=== PATIENT | male | born 1965 | race Caucasian/White ===

== ENCOUNTER 2017-02-27 15:48 | Inpatient (IN) | payer BC ==
[~2017-02-27] VITALS: Ht 185.4 cm; Wt 161.6 kg
[~2017-02-27 15:48] MED LIST: AMOX500C3 PO; CHOL1000 PO; MULT-506 PO; SULF800T23 PO; WARF-281 PO
[2017-02-27] MEDS ORDERED: DILTIAZEM BOLUS / DRIP IV STA (16:14)
[2017-02-27] MEDS ORDERED: SODIUM CHLORIDE 0.9% 1000ML 1,000 ML IV ONE (16:15)
[2017-02-27] MEDS ORDERED: DILTIAZEM HCL 5 MG/ML 5 ML VIAL ONE (16:24)
[2017-02-27] MEDS ORDERED: DILTIAZEM HCL INJ 125 MG in DEXTROSE 5% 100ML IV PRN (16:30)
[2017-02-27 16:56] LABS: BASO % 0.4 %; BASO ABS # 0.03 K/uL (0-0.2); COMPLETE YES; EOS % 2.4 %; HEMATOCRIT 42.9 % (42-52); IG% 0.1 %; LYMPH % 25.5 %; LYMPH ABS # 1.83 K/uL (1.2-3.4); MEAN CELL VOLUME 88.3 fL (80-100); MEAN CORPUSCULAR HEMOGLOBIN 29.8 pg (25-34); MEAN CORPUSCULAR HGB CONC 33.8 g/dl (32-36); MEAN PLATELET VOLUME 11.8 fL (7.4-10.4); MONO % 10.6 %; PLATELET COUNT 158 K/uL (130-400); RED BLOOD COUNT 4.86 M/uL (4.7-6.1); WHITE BLOOD COUNT 7.17 K/uL (4.8-10.8)
[2017-02-27 17:00] LABS: BUN/CREATININE RATIO 13.4 (10-20); CALCIUM 9.2 mg/dl (8.5-10.1); CREATININE 0.76 mg/dl (0.60-1.40); MAGNESIUM 2.1 mg/dl (1.8-2.4); POTASSIUM 3.9 mmol/L (3.5-5.1)
[2017-02-27 17:08] LABS: INR 2.9 (0.9-1.1); PARTIAL THROMBOPLASTIN RATIO 1.6
[2017-02-27 17:11] LABS: ALB/GLOB RATIO 0.9 (0.9-2); THYROID STIMULATING HORMONE 2.66 uIu/ml (0.300-4.500)
--- NOTE | 2017-02-27 17:29 | DIAGNOSTIC IMAGING REPORT ---
CHEST 2 VIEWS ROUTINE CLINICAL HISTORY: SOB. Afib. COMPARISON STUDY: No previous studies for comparison. FINDINGS: The heart is mildly enlarged. There is mild central vascular prominence without evidence of overt edema. There is no focal pulmonary consolidation. There are equivocal trace pleural effusions.[ IMPRESSION: 1. Mild cardiomegaly with mild central vascular prominence 2. No overt edema 3. No evidence of focal pulmonary consolidation 4. Equivocal trace pleural effusions Electronically signed by: Kwesi Giron M.D. 02/27/2017 5:28 PM Dictated Date/Time: 02/27/2017 5:27 PM
[2017-02-27 17:51] LABS: LYME DISEASE AB IGG NEG (NEG); LYME DISEASE AB IGM NEG (NEG)
[2017-02-27] MEDS ORDERED: ONDANSETRON INJ 2 MG/ML 2 ML VIAL IV PRN (18:30)
[2017-02-27] MEDS ORDERED: DILTIAZEM BOLUS / DRIP IV PRN (18:31)
[2017-02-27 19:54] VITALS: BP 110/74; PULSE 94; TEMP 36.8; O2SAT 95; Ht 185.4 cm; Wt 161.6 kg
--- NOTE | 2017-02-27 19:57 | History and Physical ---
History & Physical Date & Time of Service: Feb 27, 2017 at 18:44 Chief Complaint: Shortness of Breath Primary Care Physician: Steve Guadarrama D.O. History of Present Illness 51 year old male who presents to the ER by referral of his PCP for atrial fibrillation with RVR. Patient's chief complaint to the PCP was increasing shortness of breath for the past 3 weeks. In the office, he was found to be in afib with RVR. He was then referred to the ER for further evaluation. Patient notes shortness of breath has been progressively getting worse. He reports shortness of breath with minimal exertion. He also reports orthopnea. He has chronic LLE edema which is unchanged from baseline. He denies chest pain or palpitations. No lightheadedness, dizziness, diaphoresis, or syncopal events. He denies abdominal pain, nausea, vomiting, or diarrhea. No fever or chills. He denies any urinary symptoms. About 2 months ago, patient got an abrasion on the his LLE which has been slow to heal. He is following with the wound clinic and was placed on Bactrim and Amoxicillin last week for culture growing pansensitive enterococcus and Klebsiella. Upon arrival to the ED, patient was in afib with RVR with rates in the 150s. He was given Cardizem 10mg IV bolus followed by a drip. Heart rates were in the low 100s at the time of my exam. Troponin is negative. Other labs are unremarkable. Past Medical/Surgical History Medical Problems: (1) DVT (deep venous thrombosis) Status: Resolved (2) PE (pulmonary embolism) Status: Resolved Family History FH: atrial fibrillation MOTHER Social History Smoking Status: Never Smoker Alcohol Use: occasionally Immunizations History of Influenza Vaccine: Yes Influenza Vaccine Date: Jun 06, 2011 History of Tetanus Vaccine?: Yes Tetanus Immunization Date: Oct 14, 2007 Multi-Drug Resistant Organisms History of MDRO: No Allergies Coded Allergies: No Known Allergies (Verified , 02/27/17) Home Medications Scheduled Amoxicillin (Amoxil), 500 MG PO TID Cholecalciferol (Vitamin D3), 1 TAB PO DAILY Multivitamin (Multivitamin), 1 TAB PO DAILY Sulfa/Trimethoprim (Bactrim Ds 800MG/160MG), 1 TAB PO BID Warfarin Sodium (Warfarin Sodium), 10 MG PO QPM Review of Systems ROS per HPI, all other systems reviewed and negative Physical Exam Vital Signs Date Time Temp Pulse Resp B/P (MAP) Pulse Ox O2 Delivery O2 Flow Rate FiO2 02/27/17 18:30 105 20 137/87 91 Room Air 02/27/17 18:15 108 20 122/95 91 Room Air 02/27/17 18:00 120 20 122/93 96 02/27/17 17:45 105 20 118/96 95 Room Air 02/27/17 17:30 117 20 121/86 94 Room Air 02/27/17 17:25 121 22 108/86 94 Room Air 02/27/17 17:11 117 22 137/87 95 Room Air 02/27/17 16:45 111 23 110/89 94 Room Air 02/27/17 16:27 22 131/95 93 02/27/17 16:18 95 Room Air 02/27/17 16:15 97 Room Air 02/27/17 16:14 146 24 131/107 98 Room Air 02/27/17 16:11 123 02/27/17 15:56 36.7 182 20 154/103 97 Room Air General Appearance: no apparent distress Head: normocephalic, atraumatic Eyes: normal inspection, sclerae normal ENT: hearing grossly normal Neck: supple, no JVD Respiratory/Chest: no respiratory distress, + decreased breath sounds Cardiovascular: regular rate, rhythm, normal peripheral pulses, + pertinent finding (trace edema LLE) Abdomen/GI: normal bowel sounds, non tender, soft Extremities/Musculoskelatal: normal inspection, no calf tenderness Neurologic/Psych: no motor/sensory deficits, alert, normal mood/affect, oriented x 3 Skin: + pertinent finding (dressing removed from LLE - two wounds noted to the left anterior phillips without significant drainage or surrounding erythema) Diagnostics Laboratory Results Results Past 24 Hours Test 02/27/17 16:15 02/27/17 16:31 02/27/17 16:35 Range/Units White Blood Count 7.17 4.8-10.8 K/uL Red Blood Count 4.86 4.7-6.1 M/uL Hemoglobin 14.5 14.0-18.0 g/dL Hematocrit 42.9 42-52 % Mean Corpuscular Volume 88.3 80-100 fL Mean Corpuscular Hemoglobin 29.8 25-34 pg Mean Corpuscular Hemoglobin Concent 33.8 32-36 g/dl Platelet Count 158 130-400 K/uL Mean Platelet Volume 11.8 7.4-10.4 fL Neutrophils (%) (Auto) 61.0 % Lymphocytes (%) (Auto) 25.5 % Monocytes (%) (Auto) 10.6 % Eosinophils (%) (Auto) 2.4 % Basophils (%) (Auto) 0.4 % Neutrophils # (Auto) 4.37 1.4-6.5 K/uL Lymphocytes # (Auto) 1.83 1.2-3.4 K/uL Monocytes # (Auto) 0.76 0.11-0.59 K/uL Eosinophils # (Auto) 0.17 0-0.5 K/uL Basophils # (Auto) 0.03 0-0.2 K/uL RDW Standard Deviation 50.5 36.4-46.3 fL RDW Coefficient of Variation 15.7 11.5-14.5 % Immature Granulocyte % (Auto) 0.1 % Immature Granulocyte # (Auto) 0.01 0.00-0.02 K/uL Prothrombin Time 33.0 9.0-12.0 SECONDS Prothromb Time International Ratio 2.9 0.9-1.1 Activated Partial Thromboplast Time 42.3 21.0-31.0 SECONDS Partial Thromboplastin Ratio 1.6 Sodium Level 142 136-145 mmol/L Potassium Level 3.9 3.5-5.1 mmol/L Chloride Level 106 98-107 mmol/L Carbon Dioxide Level 27 21-32 mmol/L Anion Gap 9.0 3-11 mmol/L Blood Urea Nitrogen 10 7-18 mg/dl Creatinine 0.76 0.60-1.40 mg/dl Est Creatinine Clear Calc Drug Dose 177.4 ml/min Estimated GFR () 123.3 Estimated GFR (Non- 106.4 BUN/Creatinine Ratio 13.4 10-20 Random Glucose 87 70-99 mg/dl Calcium Level 9.2 8.5-10.1 mg/dl Magnesium Level 2.1 1.8-2.4 mg/dl Total Bilirubin 0.4 0.2-1 mg/dl Aspartate Amino Transf (AST/SGOT) 19 15-37 U/L Alanine Aminotransferase (ALT/SGPT) 34 12-78 U/L Alkaline Phosphatase 67 45-117 U/L Total Protein 7.2 6.4-8.2 gm/dl Albumin 3.5 3.4-5.0 gm/dl Globulin 3.7 2.5-4.0 gm/dl Albumin/Globulin Ratio 0.9 0.9-2 Lipase 131 73-393 U/L Thyroid Stimulating Hormone (TSH) 2.660 0.300-4.500 uIu/ml Lyme Disease IgG Antibody NEG NEG Lyme Disease IgM Antibody NEG NEG Bedside Lactic Acid Venous 1.47 0.90-1.70 mmol/L Bedside Troponin I < 0.030 0-0.045 ng/ml Microbiology Results 02/27/17 Blood Culture, Received Pending 02/27/17 Blood Culture, Received Pending Diagnostic Radiology CXR IMPRESSION: 1. Mild cardiomegaly with mild central vascular prominence 2. No overt edema 3. No evidence of focal pulmonary consolidation 4. Equivocal trace pleural effusions Impression Assessment and Plan NEW ONSET ATRIAL FIBRILLATION WITH RVR - admit to tele - patient presented to PCP's office today with worsening shortness of breath x 3 weeks, found to be in atrial fibrillation with RVR with rates in the 150s - s/p Cardizem 10mg IV bolus and drip in the ED with improvement in heart rate - will start metoprolol tartrate 12.5mg BID tonight and wean cardizem drip as able - initial troponin negative, continue to cycle cardiac enzymes - echo - patient already on Coumadin with therapeutic INR for hx of DVT/PE - may have some mild volume overload - consider small dose of IV Lasix - electrolytes WNL; ? if LLE wound infection has triggered the afib, also consider YENNI - will need outpatient sleep study - case discussed with Dr. Ko [facility] - following with the wound center - wound care consult - outpatient culture grew pansensitive Klebsiella and enterococcus; on Bactrim and amoxicillin - will continue HX DVT/PE - on Coumadin with therapeutic INR DVT PROPHYLAXIS - on Coumadin with therapeutic INR DISPO - In my clinical judgment this beneficiary meets acute admission criteria, established by [facility], that includes being hospitalized through two midnights. Addendum: I have seen and evaluated the patient and agree with the assessment and plan above. Per the nurse at 9pm, the patient is on diltiazem 15mg/hr and is low 100s unless he stands up, when his HR goes to 150s. Metoprolol changed to 25mg PO BID. He is reporting no SOB as his issue is dyspnea with exertion only over the past several weeks. Apprec Cards eval in am. Kelvin, DO Level of Care Telemetry Resuscitation Status FULL RESUSCITATION VTE Prophylaxis VTE Risk Assessment Done? Y/N: Yes Risk Level: Moderate Given or contraindicated: Warfarin (Coumadin)
[2017-02-27 20:19] LABS: URINE APPEARANCE CLEAR (CLEAR); URINE BILIRUBIN NEG (NEG); URINE COLOR YELLOW; URINE NITRITE NEG (NEG); URINE PH 5.5 (4.5-7.5); URINE SPECIFIC GRAVITY 1.019 (1.000-1.030); UROBILINOGEN NEG (NEG); ZZUR CULT IF INDIC CLEAN CATCH NO
[2017-02-27 20:20] LABS: MANUAL MICROSCOPIC REQUIRED? NO; REVIEW REQ? NO
[2017-02-27] MEDS: WARFARIN SOD 10 MG TAB PO SCH (20:28)
[2017-02-27] MEDS: SULFAMETHOXAZOLE/TRIMETHOPRIM DS 800/160MG TAB PO SCH (20:29)
[2017-02-27] MEDS: AMOXICILLIN 500 MG CAP PO SCH (20:30)
[2017-02-27] MEDS ORDERED: METOPROLOL TARTRATE 25 MG TAB PO ONE (21:00)
[2017-02-27] MEDS ORDERED: METOPROLOL TARTRATE 25 MG TAB PO SCH (21:00)
[2017-02-27] MEDS: ACETAMINOPHEN 325 MG TAB PO PRN (21:51)
--- NOTE | 2017-02-27 23:41 | EMERGENCY ROOM VISIT NOTE ---
History First contact with patient: 15:57 Chief Complaint: IRREGULAR HEARTBEAT Stated Complaint: EKG @ [facility] SHOWED A-FIB, DIFFICULTY BREATHING Nursing Triage Summary: SOB times three weeks waking him up at night the past three night. Patient states he had no "chest pain". History of Present Illness The patient is a 51 year old male who presents to the Emergency Room with complaints of vague shortness of breath symptoms for the past 3 weeks. His symptoms have been worse the past 3 nights, particularly when trying to sleep. He is having difficulty catching his breath but does not have distinct chest pain. He has been without fever or chills. The patient has a history of PE and is on warfarin. He went to his primary care physician today and was in A. fib. He was referred to the ER for further evaluation as he has never had this in the past. The patient was evaluated at [facility] yesterday for a left lower leg wound with slow healing. He is currently on a course of Bactrim and amoxicillin after growing Klebsiella and enterococcus. The patient states he is tolerating his medication well but did skip his dose of Coumadin yesterday. He does not believe he is diabetic. He is without additional complaints. He does not identify aggravating or alleviating factors. Review of Systems More than 10 systems were reviewed and otherwise negative with the exception of history of present illness. Past Medical/Surgical History Medical Problems: (1) DVT (deep venous thrombosis) (2) PE (pulmonary embolism) Family History Hypertension Kidney disease Social History Smoking Status: Never Smoker Alcohol Use: occasionally Drug Use: none Marital Status: Housing Status: lives with family Occupation Status: employed Current/Historical Medications Scheduled Amoxicillin (Amoxil), 500 MG PO TID Cholecalciferol (Vitamin D3), 1 TAB PO DAILY Multivitamin (Multivitamin), 1 TAB PO DAILY Sulfa/Trimethoprim (Bactrim Ds 800MG/160MG), 1 TAB PO BID Warfarin Sodium (Warfarin Sodium), 10 MG PO QPM Physical Exam Vital Signs Date Time Temp Pulse Resp B/P (MAP) Pulse Ox O2 Delivery O2 Flow Rate FiO2 02/27/17 18:15 108 20 122/95 91 Room Air 02/27/17 18:00 120 20 122/93 96 02/27/17 17:45 105 20 118/96 95 Room Air 02/27/17 17:30 117 20 121/86 94 Room Air 02/27/17 17:25 121 22 108/86 94 Room Air 02/27/17 17:11 117 22 137/87 95 Room Air 02/27/17 16:45 111 23 110/89 94 Room Air 02/27/17 16:27 22 131/95 93 02/27/17 16:18 95 Room Air 02/27/17 16:15 97 Room Air 02/27/17 16:14 146 24 131/107 98 Room Air 02/27/17 16:11 123 02/27/17 15:56 36.7 182 20 154/103 97 Room Air Physical Exam VITALS: Vitals are noted on the nurse's note and reviewed by myself. Vital signs with tachycardia GENERAL: Well-developed, well-nourished, white male who appears mildly uncomfortable but cooperative. NECK: Supple without nuchal rigidity. No lymphadenopathy. No thyromegaly. Cervical spine is nontender. HEART: Irregularly irregular without noted murmur LUNGS: Distant bilaterally without wheezes, rales or rhonchi. No retractions or accessory muscle use. ABDOMEN: Positive normal bowel sounds x 4. Soft, nontender, without masses or organomegaly. No guarding or rebound tenderness. NEURO: Patient was alert and oriented to person place and time. CN II through XII grossly intact. Medical Decision & Procedures Laboratory Results 02/27/17 16:15 Red Blood Count 4.86, Mean Corpuscular Volume 88.3, Mean Corpuscular Hemoglobin 29.8, Mean Corpuscular Hemoglobin Concent 33.8, Mean Platelet Volume 11.8, Neutrophils (%) (Auto) 61.0, Lymphocytes (%) (Auto) 25.5, Monocytes (%) (Auto) 10.6, Eosinophils (%) (Auto) 2.4, Basophils (%) (Auto) 0.4, Neutrophils # (Auto ) 4.37, Lymphocytes # (Auto) 1.83, Monocytes # (Auto) 0.76, Eosinophils # (Auto ) 0.17, Basophils # (Auto) 0.03 02/27/17 16:15 Test 02/27/17 16:15 02/27/17 16:31 02/27/17 16:35 White Blood Count 7.17 K/uL (4.8-10.8) Red Blood Count 4.86 M/uL (4.7-6.1) Hemoglobin 14.5 g/dL (14.0-18.0) Hematocrit 42.9 % (42-52) Mean Corpuscular Volume 88.3 fL (80-100) Mean Corpuscular Hemoglobin 29.8 pg (25-34) Mean Corpuscular Hemoglobin Concent 33.8 g/dl (32-36) Platelet Count 158 K/uL (130-400) Mean Platelet Volume 11.8 fL (7.4-10.4) Neutrophils (%) (Auto) 61.0 % Lymphocytes (%) (Auto) 25.5 % Monocytes (%) (Auto) 10.6 % Eosinophils (%) (Auto) 2.4 % Basophils (%) (Auto) 0.4 % Neutrophils # (Auto) 4.37 K/uL (1.4-6.5) Lymphocytes # (Auto) 1.83 K/uL (1.2-3.4) Monocytes # (Auto) 0.76 K/uL (0.11-0.59) Eosinophils # (Auto) 0.17 K/uL (0-0.5) Basophils # (Auto) 0.03 K/uL (0-0.2) RDW Standard Deviation 50.5 fL (36.4-46.3) RDW Coefficient of Variation 15.7 % (11.5-14.5) Immature Granulocyte % (Auto) 0.1 % Immature Granulocyte # (Auto) 0.01 K/uL (0.00-0.02) Prothrombin Time 33.0 SECONDS (9.0-12.0) Prothromb Time International Ratio 2.9 (0.9-1.1) Activated Partial Thromboplast Time 42.3 SECONDS (21.0-31.0) Partial Thromboplastin Ratio 1.6 Anion Gap 9.0 mmol/L (3-11) Est Creatinine Clear Calc Drug Dose 177.4 ml/min Estimated GFR () 123.3 Estimated GFR (Non- 106.4 BUN/Creatinine Ratio 13.4 (10-20) Calcium Level 9.2 mg/dl (8.5-10.1) Magnesium Level 2.1 mg/dl (1.8-2.4) Total Bilirubin 0.4 mg/dl (0.2-1) Aspartate Amino Transf (AST/SGOT) 19 U/L (15-37) Alanine Aminotransferase (ALT/SGPT) 34 U/L (12-78) Alkaline Phosphatase 67 U/L (45-117) Total Protein 7.2 gm/dl (6.4-8.2) Albumin 3.5 gm/dl (3.4-5.0) Globulin 3.7 gm/dl (2.5-4.0) Albumin/Globulin Ratio 0.9 (0.9-2) Lipase 131 U/L (73-393) Thyroid Stimulating Hormone (TSH) 2.660 uIu/ml (0.300-4.500) Lyme Disease IgG Antibody NEG (NEG) Lyme Disease IgM Antibody NEG (NEG) Bedside Lactic Acid Venous 1.47 mmol/L (0.90-1.70) Bedside Troponin I < 0.030 ng/ml (0-0.045) Medications Administered Medications (Trade) Dose Ordered Sig/Brittani Route Start Time Stop Time Status Last Admin Dose Admin Sodium Chloride 1,000 ml @ 200 mls/hr Q5H ONCE IV 02/27/17 16:15 02/27/17 19:47 DC 02/27/17 16:15 200 MLS/HR Diltiazem HCl 125 mg/Dextrose 125 ml @ 0 mls/hr Q0M PRN IV 02/27/17 16:30 02/27/17 23:59 02/27/17 16:29 5 MLS/HR Diltiazem HCl (Cardizem Inj) 25 mg STK-MED ONCE .ROUTE 02/27/17 16:24 02/27/17 16:25 DC 02/27/17 16:29 10 MG ECG Change: Atrial fibrillation with rapid ventricular response @130bpm Abnormal ECG When compared with ECG of 24-SEP-2001 02:57, Atrial fibrillation has replaced Sinus rhythm T wave inversion more evident in Inferior leads ED Course Physical exam and history were performed. Nursing notes, EMR, and Medication List were personally reviewed. Patient appears to have shortness of breath and outpatient EKG concerning for atrial fibrillation. On examination the patient appears to be in A. fib, and is likely the primary cause of his symptoms. EKG was performed the patient was noted to be in A. fib with RVR at 130 bpm. Observing the patient in the room his heart rate was consistently 1:30 and above, sometimes into the 160s. IV access was established 2. The patient was gently hydrated with normal saline and placed on the monitor car operator. He was given a Cardizem bolus and drip. The case was discussed with my attending physician, Dr. Kamara. The patient's blood work is as above and was reviewed. He does not have a significantly elevated white blood cell count or gross anemia, bandemia, or significant electrolyte imbalance. Troponin 1 is negative. TSH is euthyroid state. Transaminases are nondiagnostic. INR is therapeutic. Chest x-ray does not show acute process. Blood cultures were performed as the patient is on antibiotics. Culture results are pending. Lactic was negative. The patient remained in atrial fibrillation on the monitor, however his rate did decrease into the 100s. Overall I have concern for the patient. He has new onset atrial fibrillation with RVR. The case was discussed with the on-call [facility] group, who agreed to evaluate the patient here in the department. Please see their dictation for further patient course, plan, and disposition. The chart was completed utilizing [employer] Speech Voice Recognition Software. Grammatical errors, random word insertions, pronoun errors, and incomplete sentences are an occasional consequence of this system due to software limitations, ambient noise, and hardware issues. Any formal questions or concerns about the content, text, or information contained within the body of this dictation should be directly addressed to the provider for clarification. . Medical Decision Differential diagnosis includes, but is not limited to: Myocardial infarction, dysrhythmia, pericarditis, pneumothorax, aortic aneurysm/dissection, DVT/PE, anxiety, GERD, PUD, electrolyte imbalance, thyroid disorder, pneumonia, bronchitis, pancreatitis, and others Medication Reconcilliation Current Medication List: was personally reviewed by me Blood Pressure Screening Blood pressure disposition: Elevated BP felt to be situational Impression Primary Impression: Atrial fibrillation with rapid ventricular response Critical Care I have personally spent greater than 30 minutes of critical care time in the direct management of this patient. This includes bedside care, interpretation of diagnostic studies, and testing, discussion with consultants, patient, and family members, and other required patient management activities. This 30 minutes is in excess of all separately billable procedures. Departure Information Referrals Steve Guadarrama, D.O. (PCP) Patient Instructions My [facility]
[2017-02-28 00:40] VITALS: BP 104/69; PULSE 85; TEMP 36.9; O2SAT 93
[2017-02-28] MEDS: DILTIAZEM HCL INJ 125 MG in DEXTROSE 5% 100ML 100 ML IV PRN ×2 (00:54→10:38)
[2017-02-28 04:11] LABS: HEMATOCRIT 40.3 % (42-52); MEAN CELL VOLUME 88.2 fL (80-100); MEAN CORPUSCULAR HEMOGLOBIN 29.1 pg (25-34); MEAN PLATELET VOLUME 11.4 fL (7.4-10.4); PLATELET COUNT 151 K/uL (130-400); RED BLOOD COUNT 4.57 M/uL (4.7-6.1); WHITE BLOOD COUNT 6.22 K/uL (4.8-10.8)
[2017-02-28 04:19] LABS: INR 2.7 (0.9-1.1); PROTHROMBIN TIME (PATIENT) 30.5 SECONDS (9.0-12.0)
[2017-02-28 04:20] LABS: BLOOD UREA NITROGEN 11 mg/dl (7-18); BUN/CREATININE RATIO 17.4 (10-20); CALCIUM 7.9 mg/dl (8.5-10.1); CARBON DIOXIDE 26 mmol/L (21-32); CHLORIDE 109 mmol/L (98-107); CREATININE 0.66 mg/dl (0.60-1.40); GLUCOSE 101 mg/dl (70-99); POTASSIUM 3.8 mmol/L (3.5-5.1); SODIUM 140 mmol/L (136-145)
[2017-02-28 04:31] VITALS: BP 97/62; PULSE 77; TEMP 36.6; O2SAT 93
[2017-02-28 07:34] VITALS: BP 130/80; PULSE 84; TEMP 36.6; O2SAT 93
[2017-02-28] MEDS: AMOXICILLIN 500 MG CAP PO SCH ×3 (07:57→20:59)
[2017-02-28] MEDS: SULFAMETHOXAZOLE/TRIMETHOPRIM DS 800/160MG TAB PO SCH ×2 (07:59→20:59)
[2017-02-28] MEDS: MULTIVITAMIN TAB PO SCH (07:59)
[2017-02-28] MEDS: CHOLECALCIFEROL 1000 INTER.UNIT TAB PO SCH (08:00)
[2017-02-28] MEDS ORDERED: METOPROLOL TARTRATE 25 MG TAB PO SCH (09:00)
[2017-02-28] MEDS ORDERED: PERFLUTREN LIPID MICROSPHERE (DEFINITY) IV ONE (10:02)
[2017-02-28 11:14] VITALS: BP 112/79; PULSE 83; TEMP 36.7; O2SAT 92
--- NOTE | 2017-02-28 12:25 | ECHOCARDIOGRAM REPORT ---
*NOTICE TO RECEIVING DEMOCRAT AGENCY This information is strictly Confidential and protected under [place] law. [place] law prohibits you from making any further disclosure of this information unless further disclosure is expressly permitted by the written consent of the person to whom it pertains or is authorized by law. A general authorization for the release of medical or other information is not sufficient for this purpose. Hospital accepts no responsibility if the information is made available to any other person, INCLUDING THE PATIENT. Interpretation Summary * Name: CORDELIA TEAGUE Study Date: 02/28/2017 09:42 AM BP: 97/62 mmHg * Patient Location: C.2T\S\S241\S\1 HR: 119 * : 1965 (M/d/yyyy) Gender: Male Height: 72 in * Age: 51 yrs Ethnicity: CA Weight: 352 lb * Ordering Physician: Víctor Campbell * Referring Physician: Kia Rivera D.O. * Performed By: Peewee Cardona RCS * * Reason For Study: A-Fib * BSA: 2.7 m2 * -- Conclusions -- * The left ventricle is mildly dilated. * Left ventricular systolic function is normal. * The left ventricular wall motion is normal. * The right ventricle is borderline dilated. * The left atrium is mildly dilated. * Right ventricular systolic pressure is normal. Procedure Details * A contrast injection of Definity was performed to improve assessment of LV function. * Contrast was injected into an intravenous site in the left arm. * One vial of Definity ultrasound contrast was diluted in normal saline to a total volume of 10 ml. A total of '6' ml of solution was administered during imaging. * Lot # [id number] of Definity utilized for procedure. * Expiration date . * The attending nurse who injected the contrast agent was ED, RN. * Image quality was poor Left Ventricle * The left ventricle is mildly dilated. * There is normal left ventricular wall thickness. * Ejection Fraction = 55-60%. * Left ventricular systolic function is normal. * The left ventricular wall motion is normal. Right Ventricle * The right ventricle is borderline dilated. Atria * The left atrium is mildly dilated. * Right atrial size is normal. Mitral Valve * The mitral valve is grossly normal. * Significant mitral regurgitation is absent. Tricuspid Valve * The tricuspid valve is not well visualized. * There is trace tricuspid regurgitation. * Right ventricular systolic pressure is normal. Aortic Valve * The aortic valve is not well visualized. * No hemodynamically significant valvular aortic stenosis. * There is no significant aortic regurgitation. Great Vessels * The aortic root is normal size. Pericardium/Pleural * There is no pericardial effusion. MMode 2D Measurements and Calculations IVSd 1.1 cm LVIDd 6.1 cm LVIDs 4.5 cm LVPWd 1.1 cm IVS/LVPW 1.0 FS 26.3 % EDV(Teich) 186.9 ml ESV(Teich) 92.2 ml EF(Teich) 50.7 % EDV(cubed) 226.9 ml ESV(cubed) 90.8 ml EF(cubed) 60.0 % LV mass(C)d 287.9 grams LV mass(C)dI 106.3 grams/m\S\2 SV(Teich) 94.7 ml SI(Teich) 34.9 ml/m\S\2 SV(cubed) 136.1 ml SI(cubed) 50.2 ml/m\S\2 Ao root diam 2.8 cm Ao root area 6.0 cm\S\2 LVOT diam 2.1 cm LVOT area 3.5 cm\S\2 LVAd ap4 34.3 cm\S\2 LVLd ap4 8.2 cm EDV(MOD-sp4) 116.4 ml EDV(sp4-el) 121.5 ml LVAs ap4 16.7 cm\S\2 LVLs ap4 7.4 cm ESV(MOD-sp4) 31.4 ml ESV(sp4-el) 31.9 ml EF(MOD-sp4) 73.0 % EF(sp4-el) 73.8 % LVAd ap2 30.6 cm\S\2 LVLd ap2 7.9 cm EDV(MOD-sp2) 97.0 ml EDV(sp2-el) 100.1 ml LVAs ap2 21.3 cm\S\2 LVLs ap2 7.2 cm ESV(MOD-sp2) 53.3 ml ESV(sp2-el) 53.4 ml EF(MOD-sp2) 45.0 % EF(sp2-el) 46.7 % LVLd %diff -3.25 % EDV(MOD-bp) 108.3 ml LVLs %diff -3.07 % ESV(MOD-bp) 41.4 ml EF(MOD-bp) 61.8 % SV(MOD-sp4) 85.0 ml SI(MOD-sp4) 31.4 ml/m\S\2 SV(MOD-sp2) 43.7 ml SI(MOD-sp2) 16.1 ml/m\S\2 SV(MOD-bp) 66.9 ml SI(MOD-bp) 24.7 ml/m\S\2 SV(sp4-el) 89.6 ml SI(sp4-el) 33.1 ml/m\S\2 SV(sp2-el) 46.7 ml SI(sp2-el) 17.2 ml/m\S\2 Doppler Measurements and Calculations Ao V2 max 90.9 cm/sec Ao max PG 3.3 mmHg Ao max PG (full) 1.4 mmHg GASTON(V,A) 2.7 cm\S\2 GASTON(V,D) 2.7 cm\S\2 LV V1 max PG 1.9 mmHg LV V1 max 68.9 cm/sec TR max maribell 166.1 cm/sec
[2017-02-28 15:09] VITALS: BP 111/65; PULSE 90; TEMP 36.6; O2SAT 94
[2017-02-28] MEDS: WARFARIN SOD 10 MG TAB PO SCH (17:18)
--- NOTE | 2017-02-28 18:05 | Progress Note ---
Subjective Date of Service: Feb 28, 2017. Subjective Pt evaluation today including: conversation w/ patient, physical exam, lab review, review of studies, review of inpatient medication list Saw/examined the patient in room 241 he is doing okay, denies any palpitations or chest pain had some shortness of breath; c/o wheezing Problem List Medical Problems: (1) Atrial fibrillation with rapid ventricular response Status: Acute Review of Systems Constitutional: No fever, No chills, No weakness Respiratory: + wheezing, + shortness of breath, + dyspnea on exertion, + dyspnea at rest, No cough, No sputum Cardiac: + orthopnea, No chest pain, No edema, No palpitations Abdomen: No pain, No nausea, No vomiting, No diarrhea Medications Current Inpatient Medications Medications (Trade) Dose Ordered Sig/Brittani Route Start Time Stop Time Status Last Admin Dose Admin Acetaminophen (Tylenol Tab) 650 mg Q4H PRN PO 02/27/17 18:30 03/29/17 18:29 02/27/17 21:51 650 MG Ondansetron HCl (Zofran Inj) 4 mg Q6H PRN IV 02/27/17 18:30 03/29/17 18:29 Cholecalciferol (Vitamin D Tab) 1,000 inter.unit DAILY PO 02/28/17 09:00 03/30/17 08:59 02/28/17 08:00 1,000 INTER.UNIT Trimethoprim/ Sulfamethoxazole (Septra Ds 800/ 160MG Tab) 1 tab BID PO 02/27/17 21:00 03/03/17 23:59 02/28/17 07:59 1 TAB Warfarin Sodium (Coumadin Tab) 10 mg DAILY@1600 PO 02/27/17 21:00 03/29/17 20:59 02/28/17 17:18 10 MG Amoxicillin (Amoxil Cap) 500 mg TID PO 02/27/17 21:00 03/03/17 20:59 02/28/17 14:15 500 MG Multivitamins (Multivitamin Tab) 1 tab DAILY PO 02/28/17 09:00 03/30/17 08:59 02/28/17 07:59 1 TAB Metoprolol Tartrate (Lopressor Tab) 25 mg BID PO 02/28/17 09:00 03/30/17 08:59 02/28/17 07:58 25 MG Diltiazem HCl 125 mg/Dextrose 125 ml @ 0 mls/hr Q0M PRN IV 02/28/17 00:30 03/30/17 00:29 02/28/17 10:38 7.5 MLS/HR Objective Vital Signs Date Time Temp Pulse Resp B/P (MAP) Pulse Ox O2 Delivery O2 Flow Rate FiO2 02/28/17 16:00 Room Air 02/28/17 15:09 36.6 90 21 111/65 (80) 94 Room Air 02/28/17 12:00 Room Air 02/28/17 11:14 36.7 83 18 112/79 (90) 92 Room Air 02/28/17 08:00 Room Air 02/28/17 07:34 36.6 84 18 130/80 (97) 93 Room Air 02/28/17 04:31 36.6 77 16 97/62 (74) 93 Room Air 02/28/17 04:00 Room Air 02/28/17 00:40 36.9 85 16 104/69 (81) 93 Room Air 02/28/17 00:00 Room Air 02/27/17 19:54 36.8 94 18 110/74 95 Room Air 02/27/17 18:30 105 20 137/87 91 Room Air 02/27/17 18:15 108 20 122/95 91 Room Air 02/27/17 18:00 120 20 122/93 96 02/27/17 17:45 105 20 118/96 95 Room Air Physical Exam General Appearance: no apparent distress Respiratory/Chest: lungs clear, normal breath sounds, no respiratory distress, no accessory muscle use Cardiovascular: no murmur, + tachycardia, + irregularly irregular Abdomen: normal bowel sounds, non tender, soft Extremities: normal inspection, no pedal edema Neurologic/Psychiatric: no motor/sensory deficits, alert, normal mood/affect Laboratory Results Last 24 Hours Test 02/27/17 19:50 02/27/17 21:56 02/28/17 03:40 Urine Color YELLOW Urine Appearance CLEAR Urine pH 5.5 Urine Specific [place] 1.019 Urine Protein NEG Urine Glucose (UA) NEG Urine Ketones 1+ Urine Occult Blood NEG Urine Nitrite NEG Urine Bilirubin NEG Urine Urobilinogen NEG Urine Leukocyte Esterase NEG Creatine Kinase MB 1.7 ng/ml 1.1 ng/ml Creatine Kinase MB Ratio Troponin I 0.025 ng/ml 0.037 ng/ml White Blood Count 6.22 K/uL Red Blood Count 4.57 M/uL Hemoglobin 13.3 g/dL Hematocrit 40.3 % Mean Corpuscular Volume 88.2 fL Mean Corpuscular Hemoglobin 29.1 pg Mean Corpuscular Hemoglobin Concent 33.0 g/dl RDW Standard Deviation 50.7 fL RDW Coefficient of Variation 15.8 % Platelet Count 151 K/uL Mean Platelet Volume 11.4 fL Prothrombin Time 30.5 SECONDS Prothromb Time International Ratio 2.7 Sodium Level 140 mmol/L Potassium Level 3.8 mmol/L Chloride Level 109 mmol/L Carbon Dioxide Level 26 mmol/L Anion Gap 5.0 mmol/L Blood Urea Nitrogen 11 mg/dl Creatinine 0.66 mg/dl Est Creatinine Clear Calc Drug Dose 212.1 ml/min Estimated GFR () 130.7 Estimated GFR (Non- 112.7 BUN/Creatinine Ratio 17.4 Random Glucose 101 mg/dl Calcium Level 7.9 mg/dl Assessment and Plan This is a 51 year old male with a PMH of DVT/PE and lower extremity cellulitis presents with new onset A. Fib with RVR New Onset A. Fib with RVR patient presented with A. fib with RVR possibly induced by an infection already on Coumadin and therapeutic INR placed on Cardizem drip Lopressor started and increased to 50mg BID and weaning Cardizem plan is for cardioversion in AM Hx. of DVT/PE continue Coumadin INR therapeutic Left LE cellulitis/wound outpatient cultures shown Klebsiella and enterococcus continue antibiotics for a total of 10 days (#6/10) wound care consulted DVT ppx Coumadin FULL CODE
[2017-02-28 19:02] VITALS: BP 138/95; PULSE 100; TEMP 37; O2SAT 93
[2017-02-28] MEDS: METOPROLOL TARTRATE 50 MG TAB PO SCH (20:59)
[2017-03-01] VITALS (9 sets, daily range): BP systolic 105–146; BP diastolic 69–96; PULSE 76–100; TEMP 36.4–36.8; O2SAT 93–98
[2017-03-01] MEDS: DILTIAZEM HCL INJ 125 MG in DEXTROSE 5% 100ML 100 ML IV PRN (02:29)
--- NOTE | 2017-03-01 02:50 | CARDIOLOGY CONSULTATION ---
DATE OF CONSULTATION: 02/28/2017 CONSULTATION REQUESTED BY: Dr. Aguayo. REASON FOR CONSULTATION: New onset atrial fibrillation. HISTORY OF PRESENT ILLNESS: Mr. Cat is a 51-year-old man, with a history of prior PE/DVT, on anticoagulation, recent slow healing lower extremity wound, morbid obesity, who was admitted in the setting of new-onset shortness of breath and atrial fibrillation. The patient reports shortness of breath, beginning approximately 3 weeks ago and this has been gradual in onset. It has been associated with occasional palpitations. Shortness of breath has been most notable when lying flat. Symptoms have been progressive and as a result, he presented to his primary care physician yesterday where he was noted to be in atrial fibrillation with RVR. His recent medical history has been remarkable for multiple courses of prednisone in the setting of a rash and a slow-healing left lower extremity ulceration, initially from trauma, being followed by the wound clinic. He is currently on antibiotics for associated cellulitis. PAST MEDICAL HISTORY: 1. PE/DVT, occurred in the setting of prolonged travel, initially in the and then again in 2010. 2. Morbid obesity. 3. A slow-healing wound. PAST SURGICAL HISTORY: No prior surgeries. FAMILY HISTORY: Mother had atrial fibrillation, no history of premature coronary disease or sudden cardiac . SOCIAL HISTORY: Denies any tobacco use. Occasional alcohol. 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 He is . ALLERGIES: No known drug allergies. HOME MEDICATIONS: Include amoxicillin, vitamin D3, multivitamin, Bactrim and warfarin. REVIEW OF SYSTEMS: Was completed and was otherwise negative, unless stated in the HPI. PHYSICAL EXAMINATION: VITAL SIGNS: Temperature 36.6, pulse 84, blood pressure 130/80; he is satting 93% on room air. GENERAL: The patient appears comfortable, no acute distress. HEENT: Sclerae are anicteric. Oropharynx is clear. Mucous membranes are moist. NECK: His neck is supple with no lymphadenopathy. LUNGS: His lungs are clear to auscultation bilaterally. HEART: He is irregularly irregular with no appreciable murmurs, rubs or gallops. ABDOMEN: His abdomen is soft, nontender, obese, but with appreciable bowel sounds. EXTREMITIES: His extremities are warm. He has 1+ lower extremity edema to his shins. SKIN: His skin shows signs of chronic venous stasis, left lower extremity ulceration is dressed. NEUROLOGIC: Nonfocal. PSYCHIATRIC: He is alert, oriented and appropriate. LABORATORY DATA: White blood cell count 6.2, hemoglobin 13.3, platelets of 151. INR of 2.7. Sodium 140, potassium 3.8, BUN of 11, creatinine of 0.7. Troponins have been negative x3. LFTs within normal limits. TSH within normal limits. Blood cultures no growth to date. Chest x-ray shows mild cardiomegaly with mild central venous vascular prominence. No clear edema. Echocardiogram obtained today and reviewed showed a mildly dilated LV, but normal LV function without regional wall motion abnormalities. RV was borderline dilated with normal function. Left atrium was mildly dilated. Estimated RV systolic pressure was normal, LV ejection fraction 55%-60%. EKG showed atrial fibrillation with RVR with heart rates in the 130s. No dynamic ST changes. Telemetry reviewed, showed atrial fibrillation with heart rates overnight apparently in the 90s-100s. IMPRESSION AND PLAN: 1. New-onset atrial fibrillations. 2. Acute heart failure, preserved ejection fraction. 3. Cellulitis, a slow-healing lower extremity ulceration. 4. Chronic venous insufficiency. The patient here with new-onset atrial fibrillation, with heart rates initially up in the 150s. Suspect episode triggered by cellulitis, which is actively being treated. At present, the patient is being rate controlled with diltiazem and is on anticoagulation, half-way, in the setting of prior/recurrent VTE. For now, recommend continued rate control with diltiazem, titrate up p.o. beta-jami as blood pressure allows. Continue on current anticoagulation. Discussed with the patient risks, benefits of cardioversion and will plan on cardioversion with anesthesia tomorrow a.m. The patient also with signs of vascular congestion, lower extremity edema, consistent with acute heart failure and will start on Lasix today and likely, discharge on low-dose p.o. Lasix with BMP to follow. Finally, the patient noted, on recent vascular study, to have venous insufficiency with a left GSV that appeared amenable to RF ablation. Discussed this procedure with the patient and will plan for outpatient procedure at a later date. Thank you for allowing us to participate in the care of this patient. Please contact with any questions. MICHAEL
[2017-03-01 06:46] LABS: HEMATOCRIT 43.9 % (42-52); MEAN CELL VOLUME 89.4 fL (80-100); MEAN CORPUSCULAR HEMOGLOBIN 27.9 pg (25-34); MEAN CORPUSCULAR HGB CONC 31.2 g/dl (32-36); MEAN PLATELET VOLUME 11.9 fL (7.4-10.4); PLATELET COUNT 155 K/uL (130-400); RED BLOOD COUNT 4.91 M/uL (4.7-6.1); WHITE BLOOD COUNT 6.75 K/uL (4.8-10.8)
[2017-03-01 07:01] LABS: INR 3.5 (0.9-1.1); PROTHROMBIN TIME (PATIENT) 39.8 SECONDS (9.0-12.0)
[2017-03-01 07:21] LABS: BUN/CREATININE RATIO 16.1 (10-20); CALCIUM 8.8 mg/dl (8.5-10.1); CREATININE 0.62 mg/dl (0.60-1.40); POTASSIUM 3.8 mmol/L (3.5-5.1)
[2017-03-01] MEDS ORDERED: PROPOFOL IV EMULSION 10 MG/ML 20 ML VIAL IV ONE (07:55)
--- NOTE | 2017-03-01 08:06 | Anesthesiology Progress Note ---
Anesthesia Post Op Note Date & Time Mar 01, 2017 at 08:06 Vital Signs Pain Intensity: 0 Vital Signs Past 12 Hours Date Time Temp Pulse Resp B/P (MAP) Pulse Ox O2 Delivery O2 Flow Rate FiO2 03/01/17 07:55 89 16 116/82 (93) 98 Room Air 03/01/17 07:48 86 16 114/82 (93) 98 Room Air 03/01/17 07:47 100 16 122/77 98 Nasal Cannula 4 03/01/17 07:45 100 16 118/73 98 Nasal Cannula 4 03/01/17 07:40 100 16 142/96 98 Nasal Cannula 4 03/01/17 04:00 Room Air 03/01/17 03:50 36.4 76 16 105/69 (81) 94 Room Air 03/01/17 00:02 36.7 80 18 122/86 (98) 94 Room Air 03/01/17 00:00 Room Air Notes Mental Status: alert / awake / arousable, participated in evaluation Pt Amnestic to Procedure: Yes Nausea / Vomiting: adequately controlled Pain: adequately controlled Airway Patency, RR, SpO2: stable & adequate BP & HR: stable & adequate Hydration State: stable & adequate Anesthetic Complications: no major complications apparent
--- NOTE | 2017-03-01 08:18 | Procedure Note ---
Procedure Note Procedure Date Mar 01, 2017. Procedure Description Procedure Name: EXTERNAL ELECTRICAL CARDIOVERSION Procedure time out: patient ID confirmed, correct procedure Consent obtained: written Time of procedure: 07:45 Indications: therapeutic Contraindications: none Description: Indication: Patient with new onset AF with RVR. He is on chronic therapeutic coumadin for recurrent VTE Anesthesia: Propofol per anesthesia service Procedure: - Pads placed in AP position. - Received 3 synchronized cardioversions - 200J, 300J, 360J. At 300 J briefly converted to sinus rhythm before returning to atrial fibrillation. - Post procedure confirmed persistent atrial fibrillation. Summary: 1. Unsuccessful electrical cardioversion. Recommendations: -- continue AV chelsie agents for rate control -- continue anticoagulation -- Will plan to see back as an outpatient in 1-2 weeks and will consider antiarrhythmics +/- eventual repeat cardioversion. Complications: none Patient tolerated procedure: well Post-procedure vital signs: reviewed and stable
[2017-03-01] MEDS: MULTIVITAMIN TAB PO SCH (09:12)
[2017-03-01] MEDS: METOPROLOL TARTRATE 50 MG TAB PO SCH (09:12)
[2017-03-01] MEDS: AMOXICILLIN 500 MG CAP PO SCH ×2 (09:12→14:16)
[2017-03-01] MEDS: SULFAMETHOXAZOLE/TRIMETHOPRIM DS 800/160MG TAB PO SCH (09:12)
[2017-03-01] MEDS: CHOLECALCIFEROL 1000 INTER.UNIT TAB PO SCH (09:13)
[2017-03-01] MEDS: ACETAMINOPHEN 325 MG TAB PO PRN (13:14)
--- NOTE | 2017-03-01 16:36 | Cardiology Follow-Up ---
Subjective Subjective Date of Service: Mar 01, 2017. Problem List Medical Problems: (1) Atrial fibrillation with rapid ventricular response Status: Acute Review of Systems Constitutional: No fever, No chills, No weakness Respiratory: + shortness of breath, + dyspnea on exertion, + dyspnea at rest, No cough, No sputum Cardiac: + orthopnea, No chest pain, No edema, No palpitations Abdomen: No pain, No nausea, No vomiting, No diarrhea Objective Vital Signs Last Vital Signs Documentation Date Time Temp Pulse Resp B/P (MAP) Pulse Ox O2 Delivery O2 Flow Rate FiO2 03/01/17 15:19 36.7 80 18 125/84 (98) 97 Room Air 03/01/17 07:47 4 Physical Exam: General Appearance: no apparent distress Respiratory/Chest: normal breath sounds, no respiratory distress, + crackles ( scant crackles at bases) Cardiovascular: no murmur, + irregularly irregular Abdomen: normal bowel sounds, non tender, soft Extremities: normal inspection, no pedal edema Neurologic/Psychiatric: no motor/sensory deficits, alert, normal mood/affect Assessment and Plan 1. AF with RVR 2. Cellulitis 3. 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 Chronic venous insufficiency 5. Suspected YENNI with dilated RV Unsuccessful cardioversion this AM. Well rate controlled this afternoon. From a cardiac standpoint OK for discharge today. -- Discontinue IV diltiazem -- Continue PO metoprolol 50 mg BID -- Continue home coumadin -- Lasix 20 mg daily -- Follow-up with me next week with repeat BMP If still symptomatic will consider rhythm control agents as an outpatient. Further discussion left GSV RF ablation as an outpatient Medications: Current Inpatient Medications Medications (Trade) Dose Ordered Sig/Brittani Route Start Time Stop Time Status Last Admin Dose Admin Acetaminophen (Tylenol Tab) 650 mg Q4H PRN PO 02/27/17 18:30 03/29/17 18:29 03/01/17 13:14 650 MG Ondansetron HCl (Zofran Inj) 4 mg Q6H PRN IV 02/27/17 18:30 03/29/17 18:29 Cholecalciferol (Vitamin D Tab) 1,000 inter.unit DAILY PO 02/28/17 09:00 03/30/17 08:59 03/01/17 09:13 1,000 INTER.UNIT Trimethoprim/ Sulfamethoxazole (Septra Ds 800/ 160MG Tab) 1 tab BID PO 02/27/17 21:00 03/03/17 23:59 03/01/17 09:12 1 TAB Warfarin Sodium (Coumadin Tab) 10 mg DAILY@1600 PO 02/27/17 21:00 03/29/17 20:59 Future Hold 02/28/17 17:18 10 MG Amoxicillin (Amoxil Cap) 500 mg TID PO 02/27/17 21:00 03/03/17 20:59 03/01/17 14:16 500 MG Multivitamins (Multivitamin Tab) 1 tab DAILY PO 02/28/17 09:00 03/30/17 08:59 03/01/17 09:12 1 TAB Diltiazem HCl 125 mg/Dextrose 125 ml @ 0 mls/hr Q0M PRN IV 02/28/17 00:30 03/30/17 00:29 03/01/17 02:29 7.5 MLS/HR Metoprolol Tartrate (Lopressor Tab) 50 mg BID PO 02/28/17 21:00 03/30/17 08:59 03/01/17 09:12 50 MG Lab Results: f03/01/17 06:09 03/01/17 06:09 Test 03/01/17 06:09 Red Blood Count 4.91 M/uL (4.7-6.1) Mean Corpuscular Volume 89.4 fL (80-100) Mean Corpuscular Hemoglobin 27.9 pg (25-34) Mean Corpuscular Hemoglobin Concent 31.2 g/dl (32-36) RDW Standard Deviation 51.7 fL (36.4-46.3) RDW Coefficient of Variation 15.9 % (11.5-14.5) Mean Platelet Volume 11.9 fL (7.4-10.4) Prothrombin Time 39.8 SECONDS (9.0-12.0) Prothromb Time International Ratio 3.5 (0.9-1.1) Anion Gap 6.0 mmol/L (3-11) Est Creatinine Clear Calc Drug Dose 227.0 ml/min Estimated GFR () 134.1 Estimated GFR (Non- 115.7 BUN/Creatinine Ratio 16.1 (10-20) Calcium Level 8.8 mg/dl (8.5-10.1)
--- NOTE | 2017-03-01 17:02 | Progress Note ---
Subjective Date of Service: Mar 01, 2017. Subjective Pt evaluation today including: conversation w/ patient, physical exam, lab review, review of studies, review of inpatient medication list Saw/examined the patient in room 241 Had failed cardioversion attempts this morning Doing well afterwards, no chest pain/shortness of breath or palpitations Problem List Medical Problems: (1) Atrial fibrillation with rapid ventricular response Status: Acute Review of Systems Constitutional: No fever, No chills Respiratory: No cough, No shortness of breath Cardiac: No chest pain, No edema, No palpitations Abdomen: No pain, No nausea, No vomiting, No diarrhea Medications Current Inpatient Medications Medications (Trade) Dose Ordered Sig/Brittani Route Start Time Stop Time Status Last Admin Dose Admin Acetaminophen (Tylenol Tab) 650 mg Q4H PRN PO 02/27/17 18:30 03/29/17 18:29 03/01/17 13:14 650 MG Ondansetron HCl (Zofran Inj) 4 mg Q6H PRN IV 02/27/17 18:30 03/29/17 18:29 Cholecalciferol (Vitamin D Tab) 1,000 inter.unit DAILY PO 02/28/17 09:00 03/30/17 08:59 03/01/17 09:13 1,000 INTER.UNIT Trimethoprim/ Sulfamethoxazole (Septra Ds 800/ 160MG Tab) 1 tab BID PO 02/27/17 21:00 03/03/17 23:59 03/01/17 09:12 1 TAB Warfarin Sodium (Coumadin Tab) 10 mg DAILY@1600 PO 02/27/17 21:00 03/29/17 20:59 Future Hold 02/28/17 17:18 10 MG Amoxicillin (Amoxil Cap) 500 mg TID PO 02/27/17 21:00 03/03/17 20:59 03/01/17 14:16 500 MG Multivitamins (Multivitamin Tab) 1 tab DAILY PO 02/28/17 09:00 03/30/17 08:59 03/01/17 09:12 1 TAB Diltiazem HCl 125 mg/Dextrose 125 ml @ 0 mls/hr Q0M PRN IV 02/28/17 00:30 03/30/17 00:29 03/01/17 02:29 7.5 MLS/HR Metoprolol Tartrate (Lopressor Tab) 50 mg BID PO 02/28/17 21:00 03/30/17 08:59 03/01/17 09:12 50 MG Objective Vital Signs Date Time Temp Pulse Resp B/P (MAP) Pulse Ox O2 Delivery O2 Flow Rate FiO2 03/01/17 16:00 Room Air 03/01/17 15:19 36.7 80 18 125/84 (98) 97 Room Air 03/01/17 12:12 36.8 78 19 110/72 (85) 93 Room Air 03/01/17 11:45 Room Air 03/01/17 09:09 36.7 81 18 146/91 (109) 95 Room Air 03/01/17 08:28 Room Air 03/01/17 08:05 93 16 120/81 (94) 98 Room Air 03/01/17 07:55 89 16 116/82 (93) 98 Room Air 03/01/17 07:48 86 16 114/82 (93) 98 Room Air 03/01/17 07:47 100 16 122/77 98 Nasal Cannula 4 03/01/17 07:45 100 16 118/73 98 Nasal Cannula 4 03/01/17 07:40 100 16 142/96 98 Nasal Cannula 4 03/01/17 04:00 Room Air 03/01/17 03:50 36.4 76 16 105/69 (81) 94 Room Air 03/01/17 00:02 36.7 80 18 122/86 (98) 94 Room Air 03/01/17 00:00 Room Air 02/28/17 20:00 Room Air 02/28/17 19:02 37.0 100 20 138/95 (109) 93 Room Air Physical Exam General Appearance: no apparent distress, + obese Respiratory/Chest: lungs clear, normal breath sounds, no respiratory distress, no accessory muscle use Cardiovascular: no edema, no murmur, + irregularly irregular Abdomen: normal bowel sounds, non tender, soft Neurologic/Psychiatric: no motor/sensory deficits, alert, normal mood/affect Laboratory Results Last 24 Hours Test 03/01/17 06:09 White Blood Count 6.75 K/uL Red Blood Count 4.91 M/uL Hemoglobin 13.7 g/dL Hematocrit 43.9 % Mean Corpuscular Volume 89.4 fL Mean Corpuscular Hemoglobin 27.9 pg Mean Corpuscular Hemoglobin Concent 31.2 g/dl RDW Standard Deviation 51.7 fL RDW Coefficient of Variation 15.9 % Platelet Count 155 K/uL Mean Platelet Volume 11.9 fL Prothrombin Time 39.8 SECONDS Prothromb Time International Ratio 3.5 Sodium Level 141 mmol/L Potassium Level 3.8 mmol/L Chloride Level 108 mmol/L Carbon Dioxide Level 27 mmol/L Anion Gap 6.0 mmol/L Blood Urea Nitrogen 10 mg/dl Creatinine 0.62 mg/dl Est Creatinine Clear Calc Drug Dose 227.0 ml/min Estimated GFR () 134.1 Estimated GFR (Non- 115.7 BUN/Creatinine Ratio 16.1 Random Glucose 96 mg/dl Calcium Level 8.8 mg/dl Assessment and Plan This is a 51 year old male with a PMH of DVT/PE and lower extremity cellulitis presents with new onset A. Fib with RVR New Onset A. Fib with RVR 03/01 failed cardioversion continue Metoprolol 50mg BID off of cardizem drip and doing well will also d/c with 20mg of Lasix outpatient f/u with PCP and cardiology 02/28 patient presented with A. fib with RVR possibly induced by an infection already on Coumadin and therapeutic INR placed on Cardizem drip Lopressor started and increased to 50mg BID and weaning Cardizem plan is for cardioversion in AM Hx. of DVT/PE continue Coumadin INR therapeutic Left LE cellulitis/wound outpatient cultures shown Klebsiella and enterococcus continue antibiotics for a total of 10 days (#6/10) wound care consulted DVT ppx Coumadin FULL CODE
[2017-03-01] MEDS ORDERED: METO50TA16 PO (17:03)
[2017-03-01] MEDS ORDERED: SULF800T23 PO (17:03)
[2017-03-01] MEDS ORDERED: AMOX500C3 PO (17:03)
[2017-03-01] MEDS ORDERED: FURO20TA PO (17:03)
--- NOTE | 2017-03-01 17:05 | Discharge Instructions ---
Discharge Instructions Date of Service Mar 01, 2017. Admission Reason for Admission: New Onset Atrial Fibrillation Discharge Discharge Diagnosis / Problem: New Onset Atrial Fibrillation Discharge Goals Goal(s): Decrease discomfort, Improve function, Diagnostic testing, Therapeutic intervention Activity Recommendations Activity Limitations: resume your previous activity . Instructions / Follow-Up Instructions / Follow-Up Please follow-up with Dr. Steve Guadarrama on , March 07 at 12:55PM * Hold Coumadin today (03/01), then continue March 02 - recheck INR next week at the Coumadin clinic * Take Metoprolol 50mg twice a day * Follow-up with cardiology as an outpatient to check HRs and blood work * You will be started on low dose Lasix Current Hospital Diet Patient's current hospital diet: AHA Diet (Heart Healthy) Discharge Diet Recommended Diet: AHA Diet (Heart Healthy) Pending Studies Studies pending at discharge: no Medical Emergencies . Who to Call and When: Medical Emergencies: If at any time you feel your situation is an emergency, please call 911 immediately. . Non-Emergent Contact Non-Emergency issues call your: Primary Care Provider . . "Provider Documentation" section prepared by Marzena Aguayo. . VTE Core Measure Inpt VTE Proph given/why not?: Warfarin (Coumadin)
--- NOTE | 2017-03-01 17:08 | Discharge Summary ---
Discharge Summary Date of Service Mar 01, 2017. Discharge Summary Admission Date: Feb 27, 2017 at 18:25 Discharge Date: Mar 01, 2017 Discharge Disposition: Home Principal Diagnosis: New onset A. Fib Hx. of Pulmonary Embolism Medication Reconciliation New Medications: Furosemide (Lasix) 20 Mg Tab 20 MG PO DAILY for 30 Days, #30 TABS Metoprolol Tartrate (Lopressor) (Lopressor) 50 Mg Tab 50 MG PO BID for 30 Days, #60 TAB Continued Medications: Amoxicillin (Amoxil) 500 Mg Cap 500 MG PO TID for 4 Days, #12 CAP (This prescription has been renewed) Cholecalciferol (Vitamin D3) 1,000 Unit Tab 1 TAB PO DAILY for 30 Days, #30 TAB 5 Refills Multivitamin (Multivitamin) Tab 1 TAB PO DAILY Sulfa/Trimethoprim (Bactrim Ds 800MG/160MG) Tab 1 TAB PO BID for 4 Days, #8 TAB (This prescription has been renewed) Warfarin Sodium (Warfarin Sodium) 10 Mg Tab 10 MG PO QPM TAKE 10 MG EVERY DAY OR OTHERWISE DIRECTED TO TAKE BY ANTICOAGULATION CLINIC/MD. Admission Information HPI (per Admitting provider): 51 year old male who presents to the ER by referral of his PCP for atrial fibrillation with RVR. Patient's chief complaint to the PCP was increasing shortness of breath for the past 3 weeks. In the office, he was found to be in afib with RVR. He was then referred to the ER for further evaluation. Patient notes shortness of breath has been progressively getting worse. He reports shortness of breath with minimal exertion. He also reports orthopnea. He has chronic LLE edema which is unchanged from baseline. He denies chest pain or palpitations. No lightheadedness, dizziness, diaphoresis, or syncopal events. He denies abdominal pain, nausea, vomiting, or diarrhea. No fever or chills. He denies any urinary symptoms. About 2 months ago, patient got an abrasion on the his LLE which has been slow to heal. He is following with the wound clinic and was placed on Bactrim and Amoxicillin last week for culture growing pansensitive enterococcus and Klebsiella. Upon arrival to the ED, patient was in afib with RVR with rates in the 150s. He was given Cardizem 10mg IV bolus followed by a drip. Heart rates were in the low 100s at the time of my exam. Troponin is negative. Other labs are unremarkable. Physical Exam (per Admitting): General Appearance: no apparent distress Head: normocephalic, atraumatic Eyes: normal inspection, sclerae normal ENT: hearing grossly normal Neck: supple, no JVD Respiratory/Chest: no respiratory distress, + decreased breath sounds Cardiovascular: regular rate, rhythm, normal peripheral pulses, + pertinent finding (trace edema LLE) Abdomen/GI: normal bowel sounds, non tender, soft Extremities/Musculoskelatal: normal inspection, no calf tenderness Neurologic/Psych: no motor/sensory deficits, alert, normal mood/affect, oriented x 3 Skin: + pertinent finding (dressing removed from LLE - two wounds noted to the left anterior phillips without significant drainage or surrounding erythema) Hospital Course This is a 51 year old male with a PMH of DVT/PE and lower extremity cellulitis presents with new onset A. Fib with RVR New Onset A. Fib with RVR 03/01 failed cardioversion continue Metoprolol 50mg BID off of cardizem drip and doing well will also d/c with 20mg of Lasix outpatient f/u with PCP and cardiology 02/28 patient presented with A. fib with RVR possibly induced by an infection already on Coumadin and therapeutic INR placed on Cardizem drip Lopressor started and increased to 50mg BID and weaning Cardizem plan is for cardioversion in AM Hx. of DVT/PE continue Coumadin INR therapeutic Left LE cellulitis/wound outpatient cultures shown Klebsiella and enterococcus continue antibiotics for a total of 10 days (#6/10) wound care consulted DVT ppx Coumadin FULL CODE Total time spent on discharge = 45 minutes This includes examination of the patient, discharge planning, medication reconciliation, and communication with other providers. Discharge Instructions Please follow-up with Dr. Steve Guadarrama on March 07 at 12:55PM * Hold Coumadin today (03/01), then continue on March 02 - recheck INR next week at the Coumadin clinic * Take Metoprolol 50mg twice a day * Follow-up with cardiology as an outpatient to check HRs and blood work * You will be started on low dose Lasix
[2017-03-08] MEDS ORDERED: FLEC100T21 PO (09:45)
== END 2017-03-01 19:04 | disposition home or self-care (01) | DRG 309 ==
LOC: C.EDB 15:49 → C.2T 18:25 → ENRESERV 18:54
PROVIDERS: ADMIT Hospitalist; ATTEND Family Medicine
PROC: 5A2204Z Restoration of Cardiac Rhythm, Single (ICD-10-PCS; principal; 2017-03-01 07:45)
DX: I48.91 Unspecified atrial fibrillation (principal); L03.116 Cellulitis of left lower limb; I87.2 Venous insufficiency (chronic) (peripheral); Z79.01 Long term (current) use of anticoagulants; Z79.899 Other long term (current) drug therapy; Z86.711 Personal history of pulmonary embolism; Z86.718 Personal history of other venous thrombosis and embolism

== ENCOUNTER → 2017-03-26 | Day surgery (SDC) | payer BC ==
[~2017-03-26] VITALS: Ht 185.4 cm; Wt 159.0 kg
[~2017-03-26] MED LIST changes: -AMOX500C3 PO; +FLEC100T21 PO; +FURO20TA PO; +METO50TA16 PO; +PROPOFOL IV EMULSION 10 MG/ML 20 ML VIAL IV ONE; -SULF800T23 PO
[2017-03-26 07:04] VITALS: BP 145/104; PULSE 104; TEMP 36.4; O2SAT 98; Ht 185.4 cm; Wt 159.0 kg
[2017-03-26 07:32] VITALS: BP 126/98; PULSE 100; O2SAT 99
[2017-03-26 07:35] VITALS: BP 142/104; PULSE 112; O2SAT 99
[2017-03-26 07:36] VITALS: BP 124/95; PULSE 111; O2SAT 97
[2017-03-26 07:43] VITALS: BP 120/91; PULSE 94; O2SAT 97
--- NOTE | 2017-03-26 07:47 | Anesthesiology Progress Note ---
Anesthesia Post Op Note Date & Time Mar 26, 2017 at 07:47 Vital Signs Vital Signs Past 12 Hours Date Time Temp Pulse Resp B/P (MAP) Pulse Ox O2 Delivery O2 Flow Rate FiO2 03/26/17 07:04 36.4 104 20 145/104 98 Room Air Notes Mental Status: alert / awake / arousable, participated in evaluation Pt Amnestic to Procedure: Yes Nausea / Vomiting: adequately controlled Pain: adequately controlled Airway Patency, RR, SpO2: stable & adequate BP & HR: stable & adequate Hydration State: stable & adequate Anesthetic Complications: no major complications apparent
--- NOTE | 2017-03-26 07:51 | Procedure Note ---
Procedure Note Procedure Date Mar 26, 2017. Procedure Description Procedure Name: External Electrical Cardioversion Procedure time out: correct procedure Consent obtained: written Time of procedure: 07:30 Performed by: attending Indications: therapeutic Contraindications: none Description: Patient with persistent atrial fibrillation. S/p failed cardioversion on 2016. Now well controlled on metoprolol and flecanide. Anesthesia provided by Dr. Haq. Pads placed in AP position. Received 3 shocks at 200J, 300J, 360J but atrial fibrillation persisted. Summary: 1. Unsuccessful electrical cardioversion. Complications: none Patient tolerated procedure: well Post-procedure vital signs: reviewed and stable
--- NOTE | 2017-03-26 07:56 | Discharge Instructions ---
Discharge Instructions Procedure Procedure Date: Mar 26, 2017. Reason for Visit: A Fib Dr Carlos To Do Anesth Req'd. Discharge Discharge Date: Mar 26, 2017. Discharge Diagnosis: Atrial Fibrillation Last Recorded Wt (Kilograms): 159 Anesthesia Post Anesthesia Instructions: If you have had General Anesthesia or IV Sedation: * Do not drive today. * Resume driving when surgeon permits. * Do not make important decisions or sign legal documents today. * Call surgeon for: 1. Temperature elevations greater than 101 degrees F. 2. Uncontrollable pain. 3. Excessive bleeding. 4. Persistent nausea and vomiting. 5. Medication intolerance (nausea, vomiting or rash). * For nausea and vomiting use only clear liquids such as: tea, soda, bouillon until nausea subsides, then gradually increase diet as tolerated. * If you have any concerns or questions, call your surgeon's office. If physician is unavailable and it is an emergency, call 911 or go to the nearest emergency room. Instructions Activity Recommendations: resume regular activity, driving or machine use limit (No driving today) Return to School/Work: with the following limitations (Tomorrow) Recommended Home Diet: resume previous diet Allergies: Coded Allergies: No Known Allergies (Verified , 02/27/17) Follow Up Follow-up with: 3-4 weeks in cardiology clinic [facility] Recommendations: Call your doctor if: * Temperature above 101 degrees * Pain not relieved by pain medicine ordered * There is increased drainage or redness from any incision * You have any unanswered questions or concerns. Your Doctors Instructions noted above were prepared by provider Fabio Carlos. Patient Signature Section: Patient Instructions Signature Page Primo Cat Patient (or Guardian) Signature/Date: I have read and understand the instructions given to me by my caregivers. Caregiver/RN/Doctor Signature/Date: The above-named patient and/or guardian has received patient instructions on this date. + Original Patient Signature Page (only) stays with chart. Please make copy for patient.
[2017-03-26 08:30] VITALS: BP 130/94; PULSE 89; O2SAT 97
== END | disposition home or self-care (01) ==
LOC: C.CPL 06:30
PROVIDERS: ATTEND Internal Medicine Interventional Cardiology
DX: I48.1 Persistent atrial fibrillation (principal); R06.09 Other forms of dyspnea; I87.2 Venous insufficiency (chronic) (peripheral); E66.01 Morbid (severe) obesity due to excess calories; Z79.01 Long term (current) use of anticoagulants; Z86.718 Personal history of other venous thrombosis and embolism; Z79.899 Other long term (current) drug therapy

== ENCOUNTER 2025-02-16 08:34 | Inpatient (IN) ==
--- NOTE | 2025-02-16 08:53 | Emergency Department Note ---
Impression & Plan Pulmonary emboli, DVT (deep venous thrombosis), Atrial fibrillation with rapid ventricular response, Subtherapeutic anticoagulation, Leukocytosis, Left ankle pain ED Provider Note NAME: CORDELIA TEAGUE AGE: 59 SEX: M : 1965 ARRIVES VIA: Walk-In INFORMANT: [Patient][] ED PROVIDER(S): [Glynn Kamara MD] CHIEF COMPLAINT: Leg pain, chest pain HISTORY OF PRESENT ILLNESS: The patient is a 59-year-old male with a history of A-fib, DVT and PE. 2 weeks ago, he was in [place]. 1 week ago, he was in [place] and had a penile lesion removed. His warfarin was held for the procedure. He has been back on warfarin for around 5 days. The patient states that this morning, his Mejia catheter was removed without difficulty. Patient is here because 3 days ago, he noticed some erythema and pain in the area of the left distal leg and ankle. He states that 2 days ago, he actually twisted the left ankle and this increased the pain. Over the last few days, the erythema has worsened. There is some warmth. The patient states that earlier this morning, he began having some left sided chest discomfort with exhalation. He has felt mildly short of breath. The patient took his metoprolol this morning about 30 minutes ago. This is for rate control with the A-fib. Given everything, the patient was concerned about infection as well as clot. He presents for evaluation. PMHx/PSHx/Social Hx: See Below PHYSICAL EXAM: GENERAL: Patient is in no acute distress. HEENT: No acute trauma, normocephalic atraumatic, mucous membranes moist, no nasal congestion. NECK: No stridor, no adenopathy, no meningismus, trachea is midline. LUNGS: Clear to auscultation bilaterally, no wheeze, no rhonchi, breath sounds equal. HEART: Tachycardic with an irregular rhythm, no murmurs. ABDOMEN: Soft, nontender, no peritonitis. Obese. EXTREMITIES: No cyanosis. The patient does have erythema, soreness and warmth in the area of the ankle and distal left leg, primarily along the medial aspect. No drainage. NEUROLOGIC: Oriented x 3, no acute motor or sensory deficits, no focal weakness. SKIN: No jaundice, no diaphoresis. DIFFERENTIAL DIAGNOSIS: DVT, PE, superficial thrombophlebitis, cellulitis, among others. EMERGENCY DEPARTMENT PROCEDURES: MEDICAL DECISION MAKING: There is a mild leukocytosis, this could be consistent with infection or just the stress of the patient's presentation. There was a normal hemoglobin. Platelet count low at 104. No bandemia. INR was subtherapeutic at 1.3. No renal failure or significant electrolyte abnormality. No concerning liver enzyme elevation. ECG shows atrial fibrillation, no acute ST elevation. Cardiac enzyme testing x 1 is not consistent with acute cardiac injury. Anaplasmosis and Babesia smears were negative. Lyme disease testing was negative. Chest x-ray did not show focal pneumonia. Bilateral lower extremity ultrasound did show bilateral DVTs. CT of the chest showed bilateral pulmonary emboli. On exam, the patient was not hypoxic or toxic. He was not tachycardic. Left ankle film shows a potential avulsion fracture versus some chronic change. No dislocation. The patient received a 500 cc saline bolus. He eventually received an IV heparin bolus and was placed on a heparin drip. The patient has bilateral pulmonary emboli and bilateral DVTs. He will require admission, anticoagulation. I spoke with the patient and case management. The on-call hospitalist was consulted. Prior/Outside records/notes reviewed: None ECG per my interpretation: Indication was chest pain. The ECG shows atrial fibrillation with a rate of 113. There is no acute ST elevation, there are no PVCs. There is some nonspecific ST change. QTc is 447. Continuous Cardiac Monitoring per my interpretation: An order was placed for continuous cardiac monitoring. The monitor shows a rate of 121 with atrial fibrillation. Imaging/x-ray results per my interpretation: Chest film does not show pneumothorax or pneumonia. Left ankle film shows potential subtle irregularity to the distal tibia/medial malleolus consistent with potential fracture versus chronic change. No dislocation. Chronic Medical/Social conditions affecting care: On warfarin chronically. Care/Management discussed with: Case management, the on-call hospitalist. Level of care consideration(s): After review of the information above and other included data: --I believe the patient requires escalation of care to admission Critical Care Note: I have personally spent 47 minutes of critical care time in the direct management of this patient. This includes bedside care, interpretation of diagnostic studies, and testing, discussion with consultants, patient, and family members, and other required patient management activities. This 47 minutes is in excess of all separately billable procedures. DISPOSITION: Admission Past Med/Surg History Problem List Left ankle pain (Acute) Leukocytosis (Acute) Subtherapeutic anticoagulation (Acute) Atrial fibrillation with rapid ventricular response (Acute) DVT (deep venous thrombosis) (Acute) Pulmonary emboli (Acute) Prediabetes Abnormal plain x-ray of ankle Subtherapeutic international normalized ratio (INR) History of urologic surgery Medical History PE (pulmonary embolism) Coronary artery calcification seen on CAT scan Social History Smoking Status: Never smoker Hx Alcohol Use: No Hx Substance Use: No Preferred Language: Macedonian Communication Ability: Effective Mat Gauger Required: No Beliefs That Will Affect Care: None Current Living Situation: Spouse Other Information That Helps Us Care for You: No Feels Safe at Home: Yes Allergies Allergies Allergy/AdvReac Type Severity Reaction Status Date / Time No Known Allergies Allergy Verified 02/27/17 16:31 Home Meds Home Medications Medication Instructions Recorded Confirmed multivitamin 1 tab PO DAILY ##0 02/26/11 02/16/25 metoprolol succinate 100 mg 150 mg PO BID 02/16/25 02/16/25 tablet,extended release 24 hr tadalafil 20 mg tablet 20 mg PO DAILY PRN Erectile 02/16/25 02/16/25 Dysfunction tirzepatide 7.5 mg/0.5 mL 7.5 mg subcut WK 02/16/25 02/16/25 subcutaneous pen injector (Mounjaro) warfarin 5 mg tablet See Rx Instructions .Route .COMPLEX 02/16/25 02/16/25 Results & Data (ED) Vital Signs Vital Signs - 24 hr 02/16/25 08:37 02/16/25 08:48 02/16/25 09:00 Temperature 37 C Temperature Source Temporal Artery Scan Pulse Rate 119 H 120 H Pulse Rate [Apical] 113 H Respiratory Rate 20 16 Respiratory Effort / Characteristics Non-Labored Spontaneous Non-Labored Spontaneous Respiratory Depth Normal Normal Respiratory Pattern Regular Blood Pressure 138/94 Blood Pressure [Right Arm] 126/87 Blood Pressure Mean 108 Blood Pressure Mean [Right Arm] 100 Blood Pressure Position [Right Arm] Semi-fowlers Pulse Oximetry 98 97 Oxygen Delivery Method Room Air Room Air Sepsis Recent Fever Within 48 Hours No Sepsis New/Unexplained Change in Mental Status No Sepsis Action Taken by Nursing No Action Required 02/16/25 11:48 Temperature Temperature Source Pulse Rate Pulse Rate [Apical] 120 H Respiratory Rate 22 Respiratory Effort / Characteristics Respiratory Depth Normal Respiratory Pattern Blood Pressure Blood Pressure [Right Arm] 137/109 H Blood Pressure Mean Blood Pressure Mean [Right Arm] 118 Blood Pressure Position [Right Arm] Pulse Oximetry 98 Oxygen Delivery Method Room Air Sepsis Recent Fever Within 48 Hours Sepsis New/Unexplained Change in Mental Status Sepsis Action Taken by Skilled Nursing Medications Current Medication List: was personally reviewed by me Laboratory Data Attestation: I reviewed the patient's lab results. 02/16/25 08:50 02/16/25 08:50 Lab Results 02/16/25 02/16/25 Range/Units 08:50 09:35 WBC 12.49 H (4.8-10.8) K/ul RBC 5.03 (4.70-6.10) M/uL Hgb 15.3 (14.0-18.0) g/dl Hct 45.7 (42.0-52.0) % MCV 90.9 (80.0-100.0) fL MCH 30.4 (25.0-34.0) pg MCHC 33.5 (32.0-36.0) g/dL RDW Std Deviation 49.1 H (36.4-46.3) fL RDW Coeff of Cori 14.8 H (11.5-14.5) % Plt Count 104 L (130-400) K/uL MPV 11.8 (9.4-12.4) fL Immature Gran % (Auto) 0.4 % Neut % (Auto) 78.7 % Lymph % (Auto) 10.6 % Lee % (Auto) 9.0 % Eos % (Auto) 1.0 % Baso % (Auto) 0.3 % Neut # (Auto) 9.82 H (1.40-6.50) K/uL Lymph # (Auto) 1.33 (1.20-3.40) K/uL Lee # (Auto) 1.12 H (0.11-0.59) K/uL Eos # (Auto) 0.13 (0.00-0.50) K/uL Baso # (Auto) 0.04 (0.00-0.20) K/uL Immature Gran # (Auto) 0.05 (0.01-0.20) K/uL PT 13.7 H (9.0-12.0) Seconds INR 1.3 H (0.9-1.1) APTT 33 H (21-31) Seconds PTT Ratio 1.2 Sodium 139 (136-145) mmol/L Potassium 3.8 (3.5-5.1) mmol/L Chloride 103 (98-107) mmol/L Carbon Dioxide 28 (21-32) mmol/L Anion Gap 8 (3-11) BUN 13 (6-23) mg/dl Creatinine 0.85 (0.6-1.4) mg/dl Est Cr Clr Drug Dosing 138.1 ml/min eGFR 100.72 BUN/Creatinine Ratio 15.3 (10-20) Glucose 87 (70-99(Fasting)) mg/dl Calcium 9.2 (8.6-10.3) mg/dl Total Bilirubin 0.9 (0.2-1.0) mg/dl AST 18 (13-39) U/L ALT 14 (7-52) U/L Alkaline Phosphatase 75 (34-104) U/L Troponin I High Sens 6.1 (0-20) pg/ml Total Protein 7.7 (6.0-8.3) gm/dl Albumin 3.9 (3.4-5.0) gm/dl Globulin 3.8 (2.5-4.0) gm/dl Albumin/Globulin Ratio 1.0 (0.9-2) Anaplasma Smear See Comment Babesia Smear See Comment Lyme Disease Screen Negative (Negative) Administered Medications Heparin Sodium/Dextrose (Heparin 56546 Unit/500 Ml D5w) 25,000 units in 500 mls @ 37 mls/hr IV .[id number] [facility]; Protocol Stop: 03/18/25 11:29 Last Admin: 02/16/25 11:44 Dose: 1,850 units/hr, 37 mls/hr Documented By: GGG Co-signed By: MMG Discontinued Medications Heparin Sodium (Porcine) (Heparin Sod (Porcine) 1000 Unit/Ml) 1 units IV NOW ONE Stop: 02/16/25 11:23 Last Admin: 02/16/25 11:43 Dose: 5,000 units Documented By: CHANDRA Co-signed By: DANIELLE Heparin Sodium/Dextrose (Heparin Iv Adult Wt-Based Standard W/ Initial Bolus Protocol) 1 each IV NOW STA; Protocol Stop: 02/16/25 11:08 Last Admin: 02/16/25 11:43 Dose: Not Given Documented By: CHANDRA Sodium Chloride (Nss) 500 mls @ 999 mls/hr IV .Q31M ONE Stop: 02/16/25 09:32 Last Infusion: 02/16/25 09:59 Dose: Infused Documented By: santi Admin: 02/16/25 09:18 Dose: 999 mls/hr Documented By: santi Ioversol (Optiray 320 125ml) 112 ml IV ONCE ONE Stop: 02/16/25 10:17 Last Admin: 02/16/25 10:17 Dose: 112 ml Documented By: ELOISA Imaging Data Radiologist's Impression: Ankle X-Ray 02/16/25 08:51 XR ankle LT min 3V routine CLINICAL HISTORY: twisted, pain COMPARISON: None FINDINGS: There is medial soft tissue swelling. There is a tiny osseous density adjacent to the tip of the medial malleolus. No other fracture or dislocation seen at the left ankle. There are mild degenerative changes. There are moderate calcaneal spurs. IMPRESSION: Possible tiny acute avulsion fracture at the medial malleolus versus sequela of old injury. No other fracture seen at the left ankle. ACT 112: Negative or not required by law. Electronically signed by: Gustavo Richards M.D. 02/16/2025 9:10 AM Chest CTA 02/16/25 08:51 CT ANGIOGRAM OF THE CHEST CLINICAL HISTORY: Left lower extremity edema and erythema. History of DVT. COMPARISON STUDY: Chest radiograph performed earlier today. TECHNIQUE: Following the IV administration of 112 cc of Optiray 320, CT angiogram of the chest was performed from the upper abdomen to the thoracic inlet utilizing the pulmonary embolus protocol. Images are reviewed in the axial, sagittal, and coronal planes. 3-D MIPS images are created and assessed. IV contrast was administered without complication. A dose lowering technique was utilized adhering to the principles of ALARA. CT DOSE: 1033.65 mGy.cm FINDINGS: There are multiple segmental and subsegmental pulmonary emboli within the bilateral lower lobes, right middle lobe and lingula. No central pulmonary embolus is present. There is no CT evidence for right heart strain. The heart is mildly enlarged. There is moderate coronary artery calcification. No pneumothorax. There is a trace left pleural effusion. Subpleural opacity within the posterior basal segment left lower lobe favors atelectasis. Subpleural ground glass opacity within the lateral basal segment left lower lobe could represent atelectasis or small pulmonary infarct. IMPRESSION: 1. Multiple segmental and subsegmental pulmonary emboli within the bilateral lower lobes, right middle lobe and lingula. No central pulmonary embolus. No CT evidence for right heart strain. 2. Subpleural groundglass opacity within the lateral basal segment of the left lower lobe which could represent a small pulmonary infarct or atelectasis. Trace left pleural effusion. 3. Mild cardiomegaly. Moderate coronary artery calcification. ACT 112: Negative or not required by law. Electronically signed by: Isai Durham M.D. 02/16/2025 10:36 AM Venous Doppler Study 02/16/25 08:51 BILATERAL LOWER EXTREMITY VENOUS DOPPLER CLINICAL HISTORY: Lower extremity swelling. Left calf pain. COMPARISON STUDY: No previous studies for comparison. TECHNIQUE: Sonography of the deep venous system of the bilateral lower extremities was performed. Compression and augmentation were evaluated. FINDINGS: The right common femoral and superficial femoral veins are patent. There is deep venous thrombus within the right popliteal vein. The right calf vessels are patent. The left common femoral, superficial femoral and popliteal veins are patent. There is deep venous thrombus within the left posterior tibial vein. IMPRESSION: Deep venous thrombus within the right popliteal and left posterior tibial veins. ACT 112: Negative or not required by law. Electronically signed by: Isai Durham M.D. 02/16/2025 11:23 AM Chest X-Ray 02/16/25 08:53 XR chest 1V portable CLINICAL HISTORY: cp COMPARISON STUDY: None FINDINGS: There is mild cardiomegaly with pulmonary vascular congestion. No consolidation or pleural effusion. No pneumothorax. IMPRESSION: CHF. ACT 112: Negative or not required by law. Electronically signed by: Gustavo Richards M.D. 02/16/2025 9:10 AM Discharge Plan Visit Data Chief Complaint: Leg Injury/Pain Stated Complaint: POSSIBLE BLOOD CLOT L LEG, PULMONARY EMBOLISM ED Provider: Feese,Glynn J Discharge Problem: Pulmonary emboli, DVT (deep venous thrombosis), Atrial fibrillation with rapid ventricular response, Subtherapeutic anticoagulation, Leukocytosis, Left ankle pain Patient Disposition: Admitted As Inpatient Condition: Serious Discharge Instructions Interventions: ED Discharge Assessment Last Done: 02/16/25 13:36 Discharge Problem: Pulmonary emboli Qualifiers: Pulmonary embolism type: unspecified Chronicity: acute Acute cor pulmonale presence: unspecified Qualified Code(s): I26.99 - Other pulmonary embolism without acute cor pulmonale DVT (deep venous thrombosis) Qualifiers: DVT location: lower extremity Affected thrombotic vein of extremity: u nspecified vein of extremity Chronicity: acute Laterality: bilateral Qualified Code(s): I82.403 - Acute embolism and thrombosis of unspecified deep veins of lower extremity, bilateral Leukocytosis Qualifiers: Leukocytosis type: unspecified Qualified Code(s): D72.829 - Elevated white blood cell count, unspecified Left ankle pain Qualifiers: Chronicity: acute Qualified Code(s): M25.572 - Pain in left ankle and joints of left foot
--- NOTE | 2025-02-16 09:11 | XRay Report ---
XR ankle LT min 3V routine CLINICAL HISTORY: twisted, pain COMPARISON: None FINDINGS: There is medial soft tissue swelling. There is a tiny osseous density adjacent to the tip of the medial malleolus. No other fracture or dislocation seen at the left ankle. There are mild dege nerative changes. There are moderate calcaneal spurs. IMPRESSION: Possible tiny acute avulsion fracture at the medial malleolus versus sequela of old injur y. No other fracture seen at the left ankle. ACT 112: Negative or not required by law. Electronically signed by: Gustavo Richards M.D. 02/16/2025 9:10 AM
--- NOTE | 2025-02-16 09:12 | XRay Report ---
XR chest 1V portable CLINICAL HISTORY: cp COMPARISON STUDY: None FINDINGS: There is mild cardiomegaly with pulmonary vascular congestion. No consolidation or pleural effusion. No pneumothorax. IMPRESSION: CHF. ACT 112: Negative or not required by law. Electronically signed by: Gustavo Richards M.D. 02/16/2025 9:10 AM
[2025-02-16 09:18] LABS: Hematocrit (blood only) 45.7 % (42.0-52.0); Hemoglobin 15.3 g/dl (14.0-18.0); Immature Granulocytes # (auto) 0.05 K/uL (0.01-0.20); Immature Granulocytes % (auto) 0.4 %; Mean Corpuscular Hemoglobin 30.4 pg (25.0-34.0); Mean Corpuscular Volume 90.9 fL (80.0-100.0); Platelet Count 104 K/uL (130-400); RDW Standard Deviation 49.1 fL (36.4-46.3); Red Blood Count 5.03 M/uL (4.70-6.10); White Blood Count 12.49 K/ul (4.8-10.8)
[2025-02-16] MEDS: SODIUM CHLORIDE 0.9% 500 ML IV ONE (09:18)
[2025-02-16 09:32] LABS: Alanine Aminotransferase 14.0 U/L (7-52); Albumin Globulin Ratio 1.0 (0.9-2); Alkaline Phosphatase 75.0 U/L (34-104); Anion Gap 8.0 (3-11); Bilirubin,Total 0.9 mg/dl (0.2-1.0); Blood Urea Nitrogen 13.0 mg/dl (6-23); Calcium 9.2 mg/dl (8.6-10.3); Carbon Dioxide 28.0 mmol/L (21-32); Chloride 103.0 mmol/L (98-107); Creatinine Clr Calc Pharmacy 138.1 ml/min; Globulin 3.8 gm/dl (2.5-4.0); Glucose 87.0 mg/dl (70-99(Fasting)); Potassium 3.8 mmol/L (3.5-5.1); Sodium 139.0 mmol/L (136-145); Total Protein 7.7 gm/dl (6.0-8.3)
[2025-02-16 09:47] LABS: INR 1.3 (0.9-1.1); Partial Thromboplastin Time 33 Seconds (21-31); Prothrombin Time 13.7 Seconds (9.0-12.0)
[2025-02-16] MEDS: OPTIRAY 320 125ml IV ONE (10:17)
--- NOTE | 2025-02-16 10:39 | CT Scan Report ---
CT ANGIOGRAM OF THE CHEST CLINICAL HISTORY: Left lower extremity edema and erythema. History of DVT. COMPARISON STUDY: Chest radiograph performed earlier today. TECHNIQUE: Following the IV administration of 112 cc of Optiray 320, CT angiogram of the chest was pe rformed from the upper abdomen to the thoracic inlet utilizing the pulmonary embolus protocol. Images are reviewed in the axial, sagittal, and coronal planes. 3-D MIPS images are created and assessed. I V contrast was administered without complication. A dose lowering technique was utilized adhering to the principles of ALARA. CT DOSE: 1033.65 mGy.cm FINDINGS: There are multiple segmental and subsegmental pulmonary emboli within the bilateral lower l obes, right middle lobe and lingula. No central pulmonary embolus is present. There is no CT evidence for right heart strain. The heart is mildly enlarged. There is moderate coronary artery calcificatio n. No pneumothorax. There is a trace left pleural effusion. Subpleural opacity within the posterior b amanda segment left lower lobe favors atelectasis. Subpleural ground glass opacity within the lateral b amanda segment left lower lobe could represent atelectasis or small pulmonary infarct. IMPRESSION: 1. Multiple segmental and subsegmental pulmonary emboli within the bilateral lower lobes, right middl e lobe and lingula. No central pulmonary embolus. No CT evidence for right heart strain. 2. Subpleural groundglass opacity within the lateral basal segment of the left lower lobe which could represent a small pulmonary infarct or atelectasis. Trace left pleural effusion. 3. Mild cardiomegaly. Moderate coronary artery calcification. ACT 112: Negative or not required by law. Electronically signed by: Isai Durham M.D. 02/16/2025 10:36 AM
--- NOTE | 2025-02-16 11:24 | Ultrasound Report ---
BILATERAL LOWER EXTREMITY VENOUS DOPPLER CLINICAL HISTORY: Lower extremity swelling. Left calf pain. COMPARISON STUDY: No previous studies for comparison. TECHNIQUE: Sonography of the deep venous system of the bilateral lower extremities was performed. Co mpression and augmentation were evaluated. FINDINGS: The right common femoral and superficial femoral veins are patent. There is deep venous thr ombus within the right popliteal vein. The right calf vessels are patent. The left common femoral, logan perficial femoral and popliteal veins are patent. There is deep venous thrombus within the left poste rior tibial vein. IMPRESSION: Deep venous thrombus within the right popliteal and left posterior tibial veins. ACT 112: Negative or not required by law. Electronically signed by: Isai Durham M.D. 02/16/2025 11:23 AM
[2025-02-16] MEDS: Heparin IV Adult Wt-Based Standard w/ INITIAL Bolus Protocol IV STA (11:43)
[2025-02-16] MEDS: HEPARIN SOD (PORCINE) 1000 UNIT/ML IV ONE (11:43)
[2025-02-16] MEDS: HEPARIN 25000 UNIT/500 ML D5W 25,000 UNITS/500 ML BAG IV SCH (11:44)
--- NOTE | 2025-02-16 11:56 | History & Physical Report ---
Date of Service February 16, 2025 Assessment & Plan (1) PE (pulmonary embolism): (2) DVT (deep venous thrombosis): (3) Subtherapeutic international normalized ratio (INR): Plan: Patient is a 59y/o M with PMHx significant for seasonal allergic rhinitis, severe YENNI on CPAP HS, bilateral knee osteoarthritis, prediabetes [Hgb A1c 5.8% 4yr ago], persistent atrial fibrillation, history of PE in 1997 and history of DVT in 2017 anticoagulated on Coumadin who presented to the ED for evaluation of LLE erythema, pain and swelling. Also endorsing L-sided chest pain and BETHEA. Ultimately found to have multiple pulmonary emboli and BLE DVTs thereby prompting admission for further evaluation and management. Recent urologic procedure, as per below. Had held his warfarin for 6 days prior to 02/09/25. His warfarin was resumed on 02/10/25, which he notes compliance with. INR 1.3 on admission. Chest CTA: Multiple segmental and subsegmental pulmonary emboli within the bilateral lower lobes, right middle lobe and lingula. No CT evidence for right heart strain. Subpleural groundglass opacity within the lateral basal segment of the left lower lobe which could represent a small pulmonary infarct or atelectasis. BLE venous Doppler US: Deep venous thrombus within the right popliteal and left posterior tibial veins. Not requiring any supplemental O2 at time of admission Trop x 1 neg, TTE pending Continue IV heparin for now -? consider transition to Eliquis vs warfarin (less monitoring burden) Hypercoagulable w/u pending (pt does not recall any prior hypercoagulable dx) Leukocytosis noted on admitting labs -Check procal -? 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 No other fracture seen at the left ankle. -Questionable acute fx vs old injury on XR --> will consult podiatry for further recs (7) Coronary artery calcification seen on CAT scan: Plan: Noted on chest CTA: moderate coronary artery calcification Check lipid panel in AM -Consider addition of cholesterol-lowering agent(s) (8) Prediabetes: Plan: Hgb A1c 5.8% 4yr ago Recheck Hgb A1c in AM DVT Prophylaxis: IV heparin, as per above Disposition: Admit to PCU Patient seen in collaboration with Dr. Rdz. Please see addendum. I spent a total of 64 minutes coordinating, documenting, and providing care for this patient excluding time spent in the performance of separately billed services or time spent by another provider/QHP. This included personally reviewing all current laboratories and imaging studies, medical reconciliation, outpatient chart review and discussion with specialists. This chart was completed in part utilizing Speech Voice Recognition Software. Grammatical errors, random word insertions, pronoun errors, and incomplete sentences are an occasional consequence of this system due to software limitations, ambient noise, and hardware issues. Any formal questions or concerns about the content, text, or information contained within the body of this dictation should be directly addressed to the provider for clarification. History of Present Illness Chief Complaint: LLE erythema, pain and swelling Primary Care Provider: Steve Guadarrama DO Patient is a 59y/o M with PMHx significant for seasonal allergic rhinitis, severe YENNI on CPAP HS, bilateral knee osteoarthritis, prediabetes [Hgb A1c 5.8% 4yr ago], persistent atrial fibrillation, history of PE in 1997 and history of DVT in 2017 anticoagulated on Coumadin who presented to the ED for evaluation of LLE erythema, pain and swelling. History obtained from the patient, patient's at bedside, discussion with ED provider and associated chart review. Patient seen at bedside in the ED with Dr. Rdz. Has been experiencing L calf erythema x few days. States he has some chronic purplish discoloration of his L calf region but mentions the erythema is new. Denies any fevers. He has also noticed some L calf swelling and pain. Mentions this area is warm to touch as well. States he twisted his L ankle several days ago. Initially he assumed these LLE changes were from this injury, however, he then started to experience some chest pain and discomfort last evening which he describes as achy/crampy in nature. Chest pain primarily under the L breast region. Some SOB with exertion as well, but not at rest. This ultimately prompted him to come to the ED for evaluation as he experienced similar cardiopulmonary symptoms during his prior PE in 1997. He had a LLE DVT in 2016 for which he was placed on warfarin indefinitely. Patient unsure if he's ever had a full hypercoagulable workup completed. Does not recall being told he has any hypercoagulable disorders. Mentions his mother had a hypercoagulable disorder - unable to recall specific type. He had a recent urologic procedure on 02/09/25 for removal of a penile neoplasm at the [facility]. Still awaiting pathology. Patient had held his warfarin for 6 days prior to 02/09/25. His warfarin was resumed on 02/10/25, which he notes compliance with. Follows with the [facility] clinic through [employer] for INR monitoring. He had a Mejia catheter placed during this procedure which was removed this morning prior to coming to the ED. He has voided multiple times since having the Mejia catheter removed. Denies any hematuria or dysuria. Patient also recently traveled to [place] 2 weeks ago. Allergies Allergy/AdvReac Type Severity Reaction Status Date / Time No Known Allergies Allergy Verified 02/27/17 16:31 Home Medications Medication Instructions Recorded Confirmed Type multivitamin 1 tab PO DAILY ##0 02/26/11 02/16/25 History metoprolol succinate 100 mg 150 mg PO BID 02/16/25 02/16/25 History tablet,extended release 24 hr tadalafil 20 mg tablet 20 mg PO DAILY PRN Erectile 02/16/25 02/16/25 History Dysfunction tirzepatide 7.5 mg/0.5 mL 7.5 mg subcut WK 02/16/25 02/16/25 History subcutaneous pen injector (Mounjaro) warfarin 5 mg tablet See Rx Instructions .Route .COMPLEX 02/16/25 02/16/25 History Past Med/Surg History Problem List Coronary artery calcification seen on CAT scan Prediabetes Abnormal plain x-ray of ankle Subtherapeutic international normalized ratio (INR) History of urologic surgery Social History Smoking Status: Never smoker Hx Alcohol Use: No Hx Substance Use: No Preferred Language: Greek Communication Ability: Effective System Administration Advisor Required: No Beliefs That Will Affect Care: None Current Living Situation: Spouse Other Information That Helps Us Care for You: No Feels Safe at Home: Yes Review of Systems Review of Systems: At least ten systems reviewed and negative, except as noted in the HPI. Physical Exam Physical Exam: Please refer to Dr. Rdz's addendum for physical examination findings. Results & Data Results & Data Vital Signs (Past 12 Hours) Vital Signs Temp Pulse Pulse Resp BP BP Pulse Ox 02/16/25 11:48 120 H 22 137/109 H 98 02/16/25 09:00 113 H 16 126/87 97 02/16/25 08:48 120 H 02/16/25 08:37 37 C 119 H 20 138/94 98 O2 Del Method 02/16/25 11:48 Room Air 02/16/25 09:00 Room Air 02/16/25 08:48 02/16/25 08:37 Room Air Laboratory Results Short CBC 02/16/25 Range/Units 08:50 WBC 12.49 H (4.8-10.8) K/ul Hgb 15.3 (14.0-18.0) g/dl Hct 45.7 (42.0-52.0) % Plt Count 104 L (130-400) K/uL BMP 02/16/25 08:50 Sodium 139 Potassium 3.8 Chloride 103 Carbon Dioxide 28 BUN 13 Creatinine 0.85 Glucose 87 Calcium 9.2 Liver Function 02/16/25 Range/Units 08:50 Total Bilirubin 0.9 (0.2-1.0) mg/dl AST 18 (13-39) U/L ALT 14 (7-52) U/L Alkaline Phosphatase 75 (34-104) U/L Albumin 3.9 (3.4-5.0) gm/dl Diagnostic Findings Ankle X-Ray 02/16/25 08:51 XR ankle LT min 3V routine CLINICAL HISTORY: twisted, pain COMPARISON: None FINDINGS: There is medial soft tissue swelling. There is a tiny osseous density adjacent to the tip of the medial malleolus. No other fracture or dislocation seen at the left ankle. There are mild degenerative changes. There are moderate calcaneal spurs. IMPRESSION: Possible tiny acute avulsion fracture at the medial malleolus versus sequela of old injury. No other fracture seen at the left ankle. ACT 112: Negative or not required by law. Electronically signed by: Gustavo Richards M.D. 02/16/2025 9:10 AM Chest CTA 02/16/25 08:51 CT ANGIOGRAM OF THE CHEST CLINICAL HISTORY: Left lower extremity edema and erythema. History of DVT. COMPARISON STUDY: Chest radiograph performed earlier today. TECHNIQUE: Following the IV administration of 112 cc of Optiray 320, CT angiogram of the chest was performed from the upper abdomen to the thoracic inlet utilizing the pulmonary embolus protocol. Images are reviewed in the axial, sagittal, and coronal planes. 3-D MIPS images are created and assessed. IV contrast was administered without complication. A dose lowering technique was utilized adhering to the principles of ALARA. CT DOSE: 1033.65 mGy.cm FINDINGS: There are multiple segmental and subsegmental pulmonary emboli within the bilateral lower lobes, right middle lobe and lingula. No central pulmonary embolus is present. There is no CT evidence for right heart strain. The heart is mildly enlarged. There is moderate coronary artery calcification. No pneumothorax. There is a trace left pleural effusion. Subpleural opacity within the posterior basal segment left lower lobe favors atelectasis. Subpleural luke und glass opacity within the lateral basal segment left lower lobe could represent atelectasis or small pulmonary infarct. IMPRESSION: 1. Multiple segmental and subsegmental pulmonary emboli within the bilateral lower lobes, right middle lobe and lingula. No central pulmonary embolus. No CT evidence for right heart strain. 2. Subpleural groundglass opacity within the lateral basal segment of the left lower lobe which could represent a small pulmonary infarct or atelectasis. Trace left pleural effusion. 3. Mild cardiomegaly. Moderate coronary artery calcification. ACT 112: Negative or not required by law. Electronically signed by: Isai Durham M.D. 02/16/2025 10:36 AM Venous Doppler Study 02/16/25 08:51 BILATERAL LOWER EXTREMITY VENOUS DOPPLER CLINICAL HISTORY: Lower extremity swelling. Left calf pain. COMPARISON STUDY: No previous studies for comparison. TECHNIQUE: Sonography of the deep venous system of the bilateral lower extremities was performed. Compression and augmentation were evaluated. FINDINGS: The right common femoral and superficial femoral veins are patent. There is deep venous thrombus within the right popliteal vein. The right calf vessels are patent. The left common femoral, superficial femoral and popliteal veins are patent. There is deep venous thrombus within the left posterior tibial vein. IMPRESSION: Deep venous thrombus within the right popliteal and left posterior tibial veins. ACT 112: Negative or not required by law. Electronically signed by: Isai Durham M.D. 02/16/2025 11:23 AM Chest X-Ray 02/16/25 08:53 XR chest 1V portable CLINICAL HISTORY: cp COMPARISON STUDY: None FINDINGS: There is mild cardiomegaly with pulmonary vascular congestion. No consolidation or pleural effusion. No pneumothorax. IMPRESSION: CHF. ACT 112: Negative or not required by law. Electronically signed by: Gustavo Richards M.D. 02/16/2025 9:10 AM Medications Administered Heparin Sodium/Dextrose (Heparin 67565 Unit/500 Ml D5w) 25,000 units in 500 mls @ 37 mls/hr IV .[id number] COUNTS INCLUDE 234 BEDS AT THE [facility]; Protocol Stop: 03/18/25 11:29 Last Admin: 02/16/25 11:44 Dose: 1,850 units/hr, 37 mls/hr Documented By: CHANDRA Co-signed By: DANIELLE Discontinued Medications Heparin Sodium (Porcine) (Heparin Sod (Porcine) 1000 Unit/Ml) 1 units IV NOW ONE Stop: 02/16/25 11:23 Last Admin: 02/16/25 11:43 Dose: 5,000 units Documented By: CHANDRA Co-signed By: DANIELLE Heparin Sodium/Dextrose (Heparin Iv Adult Wt-Based Standard W/ Initial Bolus Protocol) 1 each IV NOW STA; Protocol Stop: 02/16/25 11:08 Last Admin: 02/16/25 11:43 Dose: Not Given Documented By: CHANDRA Sodium Chloride (Nss) 500 mls @ 999 mls/hr IV .Q31M ONE Stop: 02/16/25 09:32 Last Infusion: 02/16/25 09:59 Dose: Infused Documented By: santi Admin: 02/16/25 09:18 Dose: 999 mls/hr Documented By: santi Ioversol (Optiray 320 125ml) 112 ml IV ONCE ONE Stop: 02/16/25 10:17 Last Admin: 02/16/25 10:17 Dose: 112 ml Documented By: ELOISA Code Status & VTE Plan Code Status FULL CODE Supervising Physician Co-Signing Physician Notes Pt seen and examined by me, care coordinated w/ B. KOLTON Foster, pls refer to her note above for further detail. Pt is a 59 yo M with severe YENNI on CPAP HS, b/l knee OA, persistent Afib, hx of DVT, hx of PE, hx of DVT, anticoagulated on Coumadin who presents with LLE pain and erythema, and left sided chest pain. Pt returned from a trip to [place] 2 weeks ago. Then week ago he had a procedure at [facility] - penile lesion removal, for this procedure he was instructed to hold warfarin 6 days prior (his procedure was on 02/09). He resumed warfarin on Saturday. He had a Mejia catheter - which was just removed this morning and pt reports he has been voiding several times on his own. In the ED LE doppler was obatined and CT PE c/w LE DVT and and b/l PE. He was started on IV heparin in ED. Currently he is sitting up in bed in [facility], he is breathing on RA. He reports pleuritic chest pain associated w/ deep breath. No abd. pain, n/v. LLE medial ankle area + purple in discoloration with mild erythema surrounding it. Pt reports he also twisted his ankle some days ago and XR was obtained in ED - showing Possible tiny acute avulsion fracture at the medial malleolus versus sequela of old injury. No other fracture seen at the left ankle. Will cont. IV heparin for now. INR is 1.3. Will need close follow up with anticoagulation clinic versus transition to doac such as eliquis. Pt is not aware if he ever had hypercoagulable testing done. Given abnormal ankle XR will consult w/ podiatry. Cont. to closely monitor. MD Kajal (1) PE (pulmonary embolism) Acute cor pulmonale presence: unspecified Chronicity: unspecified Pulmonary embolism type: unspecified Qualified Code(s): I26.99 - Other pulmonary embolism without acute cor pulmonale (2) DVT (deep venous thrombosis) Affected thrombotic vein of extremity: unspecified vein of extremity Chronicity: unspecified DVT location: lower extremity Laterality: bilateral Qualified Code(s): I82.403 - Acute embolism and thrombosis of unspecified deep veins of lower extremity, bilateral
[2025-02-16] MEDS ORDERED: METOPROLOL TARTRATE 1 MG/ML VIAL IV PRN (13:22)
[2025-02-16] MEDS ORDERED: MAGNESIUM HYDROXIDE SUSP 30 ML UDC PO PRN (14:05)
[2025-02-16] MEDS ORDERED: ONDANSETRON INJ 2 MG/ML 2 ML VIAL IV PRN (14:05)
[2025-02-16] MEDS ORDERED: POLYETHYLENE (MIRALAX) 17 GM PACK PO PRN (14:05)
[2025-02-16 15:37] LABS: ANTI-Xa, UFH(UnfractionatedHep 0.52 IU/ml (0.3-0.7)
--- NOTE | 2025-02-16 18:42 | Podiatry Consultation ---
Date of Consultation February 16, 2025 Assessment & Plan (1) Left ankle pain: Chronicity: acute Qualified Code(s): M25.572 - Pain in left ankle and joints of left foot (2) DVT (deep venous thrombosis): Affected thrombotic vein of extremity: unspecified vein of extremity Chronicity: acute DVT location: lower extremity Laterality: bilateral Qualified Code(s): I82.403 - Acute embolism and thrombosis of unspecified deep veins of lower extremity, bilateral (3) Abnormal plain x-ray of ankle: Plan Plain film radiographs reviewed with "possible tiny acute avulsion fracture of the medial malleolus versus sequela of old injury." Based on clinical exam x- ray findings favor sequela of old injury. No clinical findings to suggest acute ankle sprain. It appears that patient's pain in the left ankle is primarily if not entirely secondary to DVT of the posterior tibial vein. Recommend continued management of DVT as per hospitalist team. Further evaluation of patient's ambulatory function and stability with PT OT. Podiatry will sign off at this time. Please reconsult as needed. Recommend patient follow-up as an outpatient for reevaluation of left ankle should symptoms persist. Thank you for consulting podiatry to aid in the care of this patient. History of Present Illness Reason for Consultation: Left ankle sprain Attending Physician: Camilo Rdz MD History of Present Illness Patient seen resting comfortably in hospital bed with and family present at bedside. Admitted to [facility] earlier today with multiple pulmonary emboli and bilateral DVT. Lower extremity venous ultrasound showing deep venous thrombosis within the right popliteal and left posterior tibial veins. Patient reports recent procedure at [facility] on 02/09/2025 for removal of penile neoplasm. Following procedure and had Mejia catheter placed which was removed this morning. He started ciprofloxacin p.o. twice daily 500 mg on 02/15 and took his third dose this morning. Reports mild increase in pain and swelling in the left ankle starting 02/14/2025. He went out to dinner with his family on Saturday and upon getting up from the table he twisted his left ankle. Immediately following this injury he was able to ambulate without increased pain. The following morning he started developing increased pain and swelling of the left ankle with a erythematous la posta to the medial left ankle. Denies instability in the left ankle with weightbearing or ambulation. Erythema edema and pain continued to expand and he reported to [facility] this morning with increased left lower extremity erythema, pain and swelling with concern for left-sided chest pain. Leukocytosis on admission with white blood count elevated to 12.49. Procalcitonin less than 0.02. Allergies Allergy/AdvReac Type Severity Reaction Status Date / Time No Known Allergies Allergy Verified 02/27/17 16:31 Home Medications Medication Instructions Recorded Confirmed Type multivitamin 1 tab PO DAILY ##0 02/26/11 02/16/25 History metoprolol succinate 100 mg 150 mg PO BID 02/16/25 02/16/25 History tablet,extended release 24 hr tadalafil 20 mg tablet 20 mg PO DAILY PRN Erectile 02/16/25 02/16/25 History Dysfunction tirzepatide 7.5 mg/0.5 mL 7.5 mg subcut WK 02/16/25 02/16/25 History subcutaneous pen injector (Mounjaro) warfarin 5 mg tablet See Rx Instructions .Route .COMPLEX 02/16/25 02/16/25 History Patient History Medical History PE (pulmonary embolism) Coronary artery calcification seen on CAT scan Social History Smoking Status: Never smoker Hx Alcohol Use: No Hx Substance Use: No Preferred Language: Thai Communication Ability: Effective Blood Bank Calendar Control Clerk Required: No Beliefs That Will Affect Care: None Current Living Situation: Spouse Other Information That Helps Us Care for You: No Feels Safe at Home: Yes Review of Systems Review of Systems: Reports shortness of breath, chest pain, pain in the left lower extremity. Physical Exam Physical Exam: Left ankle: Diffuse edema left lower extremity below the knee. Increased erythema and edema focally over the medial ankle and distal leg which is tender to palpation. Patient has no focal pain to palpation on the distal aspect of the medial malleolus, anterior medial and lateral ankle gutter or to palpation of the lateral malleolus or lateral collateral ligaments. No laxity noted on clinical talar tilt exam or anterior drawer test. No pain elicited on range of motion of the ankle. Results & Data Vital Signs (Past 12 Hours) Vital Signs Temp Pulse Pulse Resp BP BP Pulse Ox 02/16/25 15:25 36.8 C 114 H 21 131/99 97 02/16/25 14:07 02/16/25 14:07 37.2 C 116 H 108/87 95 02/16/25 13:36 104 H 18 127/103 H 96 02/16/25 12:36 125 H 20 137/109 H 95 02/16/25 11:48 120 H 22 137/109 H 98 02/16/25 09:00 113 H 16 126/87 97 02/16/25 08:48 120 H 02/16/25 08:37 37 C 119 H 20 138/94 98 O2 Del Method 02/16/25 15:25 Room Air 02/16/25 14:07 Room Air 02/16/25 14:07 Room Air 02/16/25 13:36 Room Air 02/16/25 12:36 Room Air 02/16/25 11:48 Room Air 02/16/25 09:00 Room Air 02/16/25 08:48 02/16/25 08:37 Room Air PG Care Time/CCT Total # of Minutes Spent Total Time Spent with Patient: Total time spent is greater than 50% in coordination of care (as documented) at patient's floor/unit and/or counseling patient: Coding Level of Care Code 78579 IN/OBS CONSULT LVL 3,45M Diagnoses Left ankle pain M25.572 Chronicity: acute DVT (deep venous thrombosis) I82.403 Affected thrombotic vein of extremity: unspecified vein of extremity Chronicity: acute DVT location: lower extremity Laterality: bilateral Abnormal plain x-ray of ankle R93.6
[2025-02-16] MEDS: METOPROLOL SUCC 50MG EXT REL TAB PO SCH (19:26)
[2025-02-16] MEDS: ACETAMINOPHEN 325 MG TAB PO PRN (20:36)
[2025-02-16] MEDS: CIPROFLOXACIN 500 MG TAB PO SCH (21:19)
[2025-02-16 22:11] LABS: Appearance Urine Clear (Clear); Glucose Urine UA Negative (Negative)
[2025-02-16 22:16] LABS: Bacteria Urine Automated None Seen (None Seen); Cast Urine Automated 0-2 /lpf (0-2); Epithelial Cell Urine Auto 0-2 /hpf (0-2); WBC Urine Automated 21-50 /hpf (0-5)
[2025-02-17 06:31] LABS: Hematocrit (blood only) 41.1 % (42.0-52.0); Hemoglobin 14.2 g/dl (14.0-18.0); Immature Granulocytes # (auto) 0.06 K/uL (0.01-0.20); Immature Granulocytes % (auto) 0.5 %; Mean Corpuscular Hemoglobin 30.9 pg (25.0-34.0); Mean Corpuscular Volume 89.3 fL (80.0-100.0); Platelet Count 109 K/uL (130-400); RDW Standard Deviation 47.3 fL (36.4-46.3); Red Blood Count 4.60 M/uL (4.70-6.10); White Blood Count 11.46 K/ul (4.8-10.8)
[2025-02-17 06:52] LABS: ANTI-Xa, UFH(UnfractionatedHep 0.39 IU/ml (0.3-0.7)
[2025-02-17 06:55] LABS: INR 1.3 (0.9-1.1); Prothrombin Time 13.4 Seconds (9.0-12.0)
[2025-02-17 07:12] LABS: Alanine Aminotransferase 12.0 U/L (7-52); Albumin Globulin Ratio 1.3 (0.9-2); Alkaline Phosphatase 63.0 U/L (34-104); Anion Gap 9.0 (3-11); Bilirubin,Total 1.1 mg/dl (0.2-1.0); Blood Urea Nitrogen 11.0 mg/dl (6-23); Calcium 8.8 mg/dl (8.6-10.3); Carbon Dioxide 25.0 mmol/L (21-32); Chloride 103.0 mmol/L (98-107); Cholesterol 145.0 mg/dl (0-200); Creatinine Clr Calc Pharmacy 186.4 ml/min; Globulin 2.8 gm/dl (2.5-4.0); Glucose 93.0 mg/dl (70-99(Fasting)); HDL Cholesterol 49.0 mg/dl; Magnesium 2.2 mg/dl (1.7-2.4); Potassium 3.8 mmol/L (3.5-5.1); Sodium 137.0 mmol/L (136-145); Total Protein 6.4 gm/dl (6.0-8.3); Triglycerides 78.0 mg/dl (0-150)
[2025-02-17] MEDS: MULTIVITAMIN TAB PO SCH (08:17)
[2025-02-17 09:24] LABS: Hemoglobin A1C 5.4 % (4.5-5.6)
--- NOTE | 2025-02-17 12:30 | Hospitalist Progress Note ---
Date of Service February 17, 2025 Assessment & Plan (1) Pulmonary emboli: Plan 59y/o M with PMHx significant for seasonal allergic rhinitis, severe YENNI on CPAP HS, bilateral knee osteoarthritis, prediabetes [Hgb A1c 5.8% 4yr ago], persistent atrial fibrillation, PE in 1997 and DVT in 2016 anticoagulated on Coumadin who presented to the ED for evaluation of LLE erythema, pain and swelling. Also endorsing L-sided chest pain and BETHEA. Ultimately found to have multiple pulmonary emboli and BLE DVTs thereby prompting admission for further evaluation and management. PE (pulmonary embolism): DVT (deep venous thrombosis): Subtherapeutic international normalized ratio (INR): Acute bilateral PE likely due to right popliteal and/or left posterior tibial DVT's Recent urologic procedure, as per below. Had held his warfarin for 6 days prior to 02/09/25. His warfarin was resumed on 02/10/25, which he notes compliance with. INR 1.3 on admission. Not requiring any supplemental O2 at time of admission. Admitting trop wnl. ECHO w/ EF of 50-55%, RV is nl in size and function, No evidence of ASD. Admitting Chest CTA: Multiple segmental and subsegmental pulmonary emboli within the bilateral lower lobes, right middle lobe and lingula. No CT evidence for right heart strain. Subpleural groundglass opacity within the lateral basal segment of the left lower lobe which could represent a small pulmonary infarct or atelectasis. Admitting BLE venous Doppler US: Deep venous thrombus within the right popliteal and left posterior tibial veins. Continue IV heparin for now, plan to switch to eliquis which pt is interested on, cost about 45 dollars a month. f/u w/ Hypercoagulable w/u --> pending f/u hematology in 1-2 months on dc. Leukocytosis: likely iso acute strees/PE/DVT. noted on admitting labs, procal neg. WBC trending down off of antibiotic. 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 L ankle XR: Possible tiny acute avulsion fracture at the medial malleolus versus sequela of old injury. Podiatry evaled, possible OP f/u if symptoms persists. Coronary artery calcification seen on CAT scan: Noted on chest CTA: moderate coronary artery calcification. A1c 5.4, LDL 80. f/u cardio as OP and get CT for CAC as OP. Prediabetes: Hgb A1c 5.8% 4yr ago, here 5.4. 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 DVT Prophylaxis: IV heparin, as per above Disposition: PT/OT. Admission and Anticipated Discharge Date Admission Date: February 16, 2025 Subjective Patient was seen and examined at bedside. Patient was sitting up in bed, on room air, NAD, resting comfortably. Patient reports improvement in his breathing, chest discomfort and LLE pain. Patient reports eating okay and moving bowels okay. Physical Exam Physical Exam: GENERAL: Alert and oriented x3. NAD, on RA. HEENT: No pallor, no icterus. Pupils equal, round and reactive to light. Oral mucosa moist. NECK: No JVD, no neck masses. HEART: S1 and S2 heard. Regular rate and rhythm. No murmur, no gallop. RESPIRATORY SYSTEM: Normal AP diameter. No accessory muscle use. No wheezing, no crackles. ABDOMEN: Soft, bowel sounds present, nontender, no distention. CENTRAL NERVOUS SYSTEM: No facial droop. Speech is clear. Obeys simple commands. Moves extremities. EXTREMITIES: LLE 1/2+ edema/warmth/ purplish discoloration medially. RLE no edema Results & Data Results & Data Vital Signs (Past 12 Hours) Vital Signs Temp Pulse Resp BP Pulse Ox Pulse Ox O2 Del Method 02/17/25 12:10 Room Air 02/17/25 11:07 37.1 C 105 H 20 109/79 97 Room Air 02/17/25 11:01 96 02/17/25 07:42 36.9 C 109 H 20 103/84 95 Room Air 08/20/25 04:03 37.3 C 107 H 18 119/93 96 Room Air O2 Flow Rate 02/17/25 12:10 02/17/25 11:07 02/17/25 11:01 0 02/17/25 07:42 02/17/25 04:03 (1) Pulmonary emboli Acute cor pulmonale presence: unspecified Chronicity: acute Pulmonary emboli sm type: unspecified Qualified Code(s): I26.99 - Other pulmonary embolism without acute cor pulmonale
[2025-02-18 03:22] VITALS: O2SAT 96
[2025-02-18 06:14] LABS: Hematocrit (blood only) 42.8 % (42.0-52.0); Hemoglobin 14.2 g/dl (14.0-18.0); Mean Corpuscular Hemoglobin 29.6 pg (25.0-34.0); Mean Corpuscular Volume 89.4 fL (80.0-100.0); Platelet Count 115 K/uL (130-400); RDW Standard Deviation 47.1 fL (36.4-46.3); Red Blood Count 4.79 M/uL (4.70-6.10); White Blood Count 8.95 K/ul (4.8-10.8)
[2025-02-18 06:30] LABS: Anion Gap 7.0 (3-11); Blood Urea Nitrogen 12.0 mg/dl (6-23); Calcium 8.9 mg/dl (8.6-10.3); Carbon Dioxide 27.0 mmol/L (21-32); Chloride 105.0 mmol/L (98-107); Creatinine Clr Calc Pharmacy 172.9 ml/min; Glucose 94.0 mg/dl (70-99(Fasting)); Magnesium 2.2 mg/dl (1.7-2.4); Potassium 3.7 mmol/L (3.5-5.1); Sodium 139.0 mmol/L (136-145)
[2025-02-18 06:56] LABS: ANTI-Xa, UFH(UnfractionatedHep 0.36 IU/ml (0.3-0.7)
[2025-02-18 07:01] LABS: INR 1.2 (0.9-1.1); Prothrombin Time 12.4 Seconds (9.0-12.0)
[2025-02-18 07:27] VITALS: BP 127/90; PULSE 103; RESP 19; TEMP 97.9
[2025-02-18] MEDS: cefTRIAXone SODIUM 2,000 MG/50 ML BAG IV SCH (08:29)
[2025-02-18] MEDS: APIXABAN 5 MG TABLET PO SCH (10:04)
--- NOTE | 2025-02-18 11:13 | Discharge Summary ---
Date of Service February 18, 2025 Admission HPI Per Admitting Provider Patient is a 59y/o M with PMHx significant for seasonal allergic rhinitis, severe YENNI on CPAP HS, bilateral knee osteoarthritis, prediabetes [Hgb A1c 5.8% 4yr ago], persistent atrial fibrillation, history of PE in 1997 and history of DVT in 2017 anticoagulated on Coumadin who presented to the ED for evaluation of LLE erythema, pain and swelling. History obtained from the patient, patient's at bedside, discussion with ED provider and associated chart review. Patient seen at bedside in the ED with Dr. Rdz. Has been experiencing L calf erythema x few days. States he has some chronic purplish discoloration of his L calf region but mentions the erythema is new. Denies any fevers. He has also noticed some L calf swelling and pain. Mentions this area is warm to touch as well. States he twisted his L ankle several days ago. Initially he assumed these LLE changes were from this injury, however, he then started to experience some chest pain and discomfort last evening which he describes as achy/crampy in nature. Chest pain primarily under the L breast region. Some SOB with exertion as well, but not at rest. This ultimately prompted him to come to the ED for evaluation as he experienced similar cardiopu lmonary symptoms during his prior PE in 1997. He had a LLE DVT in 2017 for which he was placed on warfarin indefinitely. Patient unsure if he's ever had a full hypercoagulable workup completed. Does not recall being told he has any hypercoagulable disorders. Mentions his mother had a hypercoagulable disorder - unable to recall specific type. He had a recent urologic procedure on 02/09/25 for removal of a penile neoplasm at the [facility]. Still awaiting pathology. Patient had held his warfarin for 6 days prior to 02/09/25. His warfarin was resumed on 02/10/25, which he notes compliance with. Follows with the [facility] clinic through [facility] for INR monitoring. He had a Mejia catheter placed during this procedure which was removed this morning prior to coming to the ED. He has voided multiple times since having the Mejia catheter removed. Denies any hematuria or dysuria. Patient also recently traveled to [place] 2 weeks ago. Admission Exam Per Admitting Provider na Principal Diagnosis PE (pulmonary embolism): DVT (deep venous thrombosis) iso Subtherapeutic international normalized ratio (INR) Acute bilateral PE likely due to right popliteal and/or left posterior tibial DVT's Complicated UTI Discharge Exam GENERAL: Alert and oriented x3. NAD, on RA. HEENT: No pallor, no icterus. Pupils equal, round and reactive to light. Oral mucosa moist. NECK: No JVD, no neck masses. HEART: S1 and S2 heard. Regular rate and rhythm. No murmur, no gallop. RESPIRATORY SYSTEM: Normal AP diameter. No accessory muscle use. No wheezing, no crackles. ABDOMEN: Soft, bowel sounds present, nontender, no distention. CENTRAL NERVOUS SYSTEM: No facial droop. Speech is clear. Obeys simple commands. Moves extremities. EXTREMITIES: LLE 1+ edema/warmth/ purplish discoloration medially is improving. RLE no edema Discharge Data Allergies Allergy/AdvReac Type Severity Reaction Status Date / Time No Known Allergies Allergy Verified 02/27/17 16:31 Consultations 02/16/25 11:57 ED Decision to Admit Stat 02/16/25 14:03 Consult Podiatry Routine Ordered Studies 02/16/25 08:51 CT angio chest PE protocol Stat US venous doppler LE BI Stat Hospital Course (1) Pulmonary emboli: Plan 59y/o M with PMHx significant for seasonal allergic rhinitis, severe YENNI on CPAP HS, bilateral knee osteoarthritis, prediabetes [Hgb A1c 5.8% 4yr ago], persistent atrial fibrillation, PE in 1997 and DVT in 2016 anticoagulated on Coumadin who presented to the ED for evaluation of LLE erythema, pain and swelling. Also endorsing L-sided chest pain and BETHEA. Ultimately found to have multiple pulmonary emboli and BLE DVTs thereby prompting admission for further evaluation and management. PE (pulmonary embolism): DVT (deep venous thrombosis): Subtherapeutic international normalized ratio (INR): Acute bilateral PE likely due to right popliteal and/or left posterior tibial DVT's Recent urologic procedure, as per below. Had held his warfarin for 6 days prior to 02/09/25. His warfarin was resumed on 02/10/25, which he notes compliance with. INR 1.3 on admission. Not requiring any supplemental O2 at time of admission. Admitting trop wnl. ECHO w/ EF of 50-55%, RV is nl in size and function, No evidence of ASD. Admitting Chest CTA: Multiple segmental and subsegmental pulmonary emboli within the bilateral lower lobes, right middle lobe and lingula. No CT evidence for right heart strain. Subpleural groundglass opacity within the lateral basal segment of the left lower lobe which could represent a small pulmonary infarct or atelectasis. Admitting BLE venous Doppler US: Deep venous thrombus within the right popliteal and left posterior tibial veins. DC IV heparin, start eliquis from am of 02/18. Communicated /w patient and he was agreeable to eliquis. f/u w/ Hypercoagulable w/u --> pending f/u hematology in 1-2 months on dc. Pt was made aware on this. Pt reports significant improvement in his breathing and lle discomfort. Complicated UTI: pt recently finished cipro course, UCx came back as resistant to cipro. Will start appropriate antibiotic for 7 days. Pt was made aware. Atrial fibrillation with rapid ventricular response: ho persistent AFib Noted on EKG and telemetry HR ranging in the low 90s to low 100s today. 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 L ankle XR: Possible tiny acute avulsion fracture at the medial malleolus versus sequela of old injury. Podiatry evaled, possible OP f/u if symptoms persists. Coronary artery calcification seen on CAT scan: Noted on chest CTA: moderate coronary artery calcification. A1c 5.4, LDL 80. f/u cardio as OP and get CT for CAC as OP. Prediabetes: Hgb A1c 5.8% 4yr ago, here 5.4. 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 DVT Prophylaxis:eliquis Disposition: PT/OT. Patient is being discharged home with following instructions at the point of discharge: Follow-up with your primary care physician within a week time and likely you will need labs CBC/CMP/magnesium/phosphorus. You were diagnosed with deep venous thrombosis of bilateral lower extremities and blood clot in the lung. You are being discharged on Eliquis. You have been started on Eliquis 10 mg twice a day from the morning of 02/18/2025, take 10 mg twice a day dose for 7 days followed by 5 mg twice a day thereafter. Follow-up with hematology in 1 to 2 months time upon discharge. Coordinate with your PCP office to set up the referral. You also were noted to have UTI resistant to ciprofloxacin, you were started on appropriate antibiotic 02/18, continue 6 more days from AM of 02/19/25 to complete 7-day course. For your recent history of urologic surgery, follow-up with your prior provider as scheduled prior. If your left ankle pain persists, recommend that you follow-up with podiatry as an outpatient. Coordinate with your PCP office to set up the referral. You were noted to have calcification in the coronary arteries during CT scan while in the hospital, recommend that you get CT coronary calcium score as an outpatient. Coordinate with your PCP office to set up the test. Take your medications as prescribed. Please make sure that you are able to get your medications today by calling your pharmacy before you leave the hospital so that your treatment continuity is not broken. Home Health Attestation I certify that this patient is under my care and that I, or a physicians pizza hut assistant working with me, had a face to-face encounter that meets the home health [id number] encounter requirements with this patient. The encounter with the patient was in whole, or in part, for the following medical condition, which is the primary reason for home health care (list medical condition): I certify that, based on my findings, the following services are medically necessary home health services: My clinical findings support the need for the above services because: Further, I certify that my clinical findings support that this patient is homebound (i.e. absences from home require considerable and taxing effort and are for medical reasons or worship services or infrequently or of short duration when for other reasons) because: Certification for Home Health Services: Based on the above findings, I certify that this patient is confined to the home and needs intermittent half-way care, physical therapy and/or speech therapy or continues to need occupational therapy. The patient is under my care, and I have initiated the establishment of the plan of care. This patient will be followed by a physician who will periodically review the plan of care. Total Time Total Time Spent Total Time Spent (In Minutes): 35 Discharge Plan Discharge Items Patient Disposition: Home - Self-Care Reason For Visit: PULMONARY EMBOLISM,BLE DVTS Discharge Diagnosis: PE (pulmonary embolism): DVT (deep venous thrombosis) iso Subtherapeutic international normalized ratio (INR) Acute bilateral PE likely due to right popliteal and/or left posterior tibial DVT's Complicated UTI Condition on Discharge: Serious Activity: Resume your previous activity Non-emergency contact: Primary Care Provider Call non-emergency contact if: you have any medication questions Follow-up/Referrals: Steve Guadarrama DO [Primary Care Provider] - (Date & Time 02/23/2025 11:00 AM Provider: Steve Guadarrama DO [facility] ) Diet: Heart Healthy Addtl Attending Provider Instructions: Follow-up with your primary care physician within a week time and likely you will need labs CBC/CMP/magnesium/phosphorus. You were diagnosed with deep venous thrombosis of bilateral lower extremities and blood clot in the lung. You are being discharged on Eliquis. You have been started on Eliquis 10 mg twice a day from the morning of 02/18/2025, take 10 mg twice a day dose for 7 days followed by 5 mg twice a day thereafter. Follow-up with hematology in 1 to 2 months time upon discharge. Coordinate with your PCP office to set up the referral. You also were noted to have UTI resistant to ciprofloxacin, you were started on appropriate antibiotic 02/18, continue 6 more days from AM of 02/19/25 to complete 7-day course. For your recent history of urologic surgery, follow-up with your prior provider as scheduled prior. If your left ankle pain persists, recommend that you follow-up with podiatry as an outpatient. Coordinate with your PCP office to set up the referral. You were noted to have calcification in the coronary arteries during CT scan while in the hospital, recommend that you get CT coronary calcium score as an outpatient. Coordinate with your PCP office to set up the test. Take your medications as prescribed. Please make sure that you are able to get your medications today by calling your pharmacy before you leave the hospital so that your treatment continuity is not broken. Pending Studies at Discharge: Yes Stand-Alone Forms: My [employer], Smoking Cessation Medications and DC Order Prescriptions: New Eliquis 5 mg tablet 5 mg PO BID Qty: 74 0RF Rx Instructions: 10 mg twice a day x 7 days then 5 mg twice a day there after. cefdinir 300 mg capsule 300 mg PO BID 6 Days Qty: 12 0RF Continued multivitamin [Multi-Vitamin] Tablet 1 tab PO DAILY Qty: 0 Patient Comments: 02/16- otc unable to verify metoprolol succinate 100 mg tablet extended release 24 hr 150 mg PO BID tadalafil 20 mg tablet 20 mg PO DAILY PRN (Reason: Erectile Dysfunction) Mounjaro 7.5 mg/0.5 mL pen injector 7.5 mg SUBCUT WK Discontinued warfarin 5 mg tablet See Rx Instructions .ROUTE .COMPLEX Rx Instructions: Full warfarin instructions: 5 mg every Mon, Wed, Fri; 10 mg all other days Discharge Orders: Discharge Order (Routine); Ordered 02/18/25 Ordered By: Jace Lanier Admission Data Admit Date/Time: 02/16/25 11:57 Attending Provider: Jace Lanier Admit Provider: Camilo Rdz Primary Care Provider: Steve Guadarrama Other Providers: Camilo Rdz; Vitor Vanegas
--- NOTE | 2025-02-20 09:50 | Electrocardiogram Report ---
Test Reason : Blood Pressure : */* mmHG Vent. Rate : 113 BPM Atrial Rate : * BPM P-R Int : * ms QRS Dur : 80 ms QT Int : 326 ms P-R-T Axes : * 43 -20 degrees QTcB Int : 447 ms Atrial fibrillation with rapid ventricular response Nonspecific ST abnormality Abnormal QRS-T angle, consider primary T wave abnormality Abnormal ECG When compared with ECG of 26-Mar-2017 07:43, No significant change was found Confirmed by Devin Gomez ([id number]) on 02/20/2025 9:49:53 AM Referred By: REFERRED SELF Confirmed By: Devin Gomez
[2025-02-25] MEDS ORDERED: APIXABAN 5 MG TABLET PO SCH ×2 (09:00)
== END 2025-02-18 12:16 | disposition home or self-care (01) | DRG 299 ==
LOC: ED 08:34 → SUATTDRO 11:57 → 2E 11:57